=== PATIENT | male | born 1945 | race Hispanic/Latino ===

== ENCOUNTER 2016-09-17 00:21 | Inpatient (IN) | payer MEDICARE, MEDICAID ==
--- NOTE | 2016-09-17 00:52 | ED PDOC ---
Arrival/HPI - General Chief Complaint: Chest Pain Time Seen by Provider: 09/17/16 00:29 Historian: Patient - Critical Care Critical Care Minutes: 60 minutes - History of Present Illness Narrative History of Present Illness (Text): 09/17/16 00:49 Nicola Knutson is a 71 year old male, whose past medical history includes diabetes, hypertension, hyperlipidemia, small SAH, CAD s/p 7 stents and hx of falls, was brought to emergency department by daughter for evaluation of confusion, chest pain and generalized weakness. According to daughter, patient had an unwitnessed fall when he sustained abrasion to the right arm. Patient denies any head trauma or loss of consciousness. Also states that patient has been confused and unable to recall events throughout the day. Patient also complains of generalized weakness associated with several episodes of vomiting. Denies any fever, chills, shortness of breath, headache, dizziness, diarrhea, back pain, urinary symptoms, or any other complaints at this time. Time/Duration: 4-6 hours Symptom Onset: Gradual Symptom Course: Unchanged Severity Level: Mild Activities at Onset: Light Context: Work Past Medical History - Provider Review Nursing Documentation Reviewed: Yes - Infectious Disease Hx of Infectious Diseases: None - Cardiac Hx Cardiac Disorders: Yes Hx Congestive Heart Failure: Yes Hx Hypertension: Yes - Pulmonary Hx Respiratory Disorders: No - Neurological Hx Neurological Disorder: Yes Hx Seizures: Yes (since 7 yrs old) - HEENT Hx HEENT Disorder: Yes Hx Cataracts: Yes - Renal Hx Renal Disorder: No - Endocrine/Metabolic Hx Endocrine Disorders: Yes Hx Diabetes Mellitus Type 2: Yes - Hematological/Oncological Hx Blood Disorders: No - Integumentary Hx Dermatological Disorder: Yes Other/Comment: multiple small lacerations and bruises to b/l arms and hands, bruise and swelling to right advent/forehead eccymosis - Musculoskeletal/Rheumatological Hx Musculoskeletal Disorders: Yes Hx Falls: Yes - Gastrointestinal Hx Gastrointestinal Disorders: No - Genitourinary/Gynecological Hx Genitourinary Disorders: No - Psychiatric Hx Psychophysiologic Disorder: Yes Hx Depression: Yes Hx Substance Use: No - Surgical History Hx Coronary Stent: Yes - Anesthesia Hx Anesthesia: Yes Family/Social History - Physician Review Nursing Documentation Reviewed: Yes Family/Social History: No Known Family HX Smoking Status: Never Smoked Hx Alcohol Use: No Hx Substance Use: No Allergies/Home Meds Allergies/Adverse Reactions: Allergies No Known Allergies Allergy (Verified 07/02/16 13:55) Home Medications: Home Meds Medication Instructions Recorded Confirmed Carvedilol [Coreg] 3.125 mg PO BID 06/20/16 09/17/16 Citalopram Hydrobromide [Celexa] 20 mg PO DAILY 06/20/16 09/17/16 Clopidogrel [Plavix] 75 mg PO DAILY 06/20/16 09/17/16 Gabapentin [Neurontin] 600 mg PO TID 06/20/16 09/17/16 Glimepiride [Amaryl] 1 mg PO DAILY 06/20/16 09/17/16 Nitroglycerin [Nitrostat] 0.4 mg SL PRN PRN 06/20/16 09/17/16 Pentoxifylline [Pentoxil] 400 mg PO TID 06/20/16 09/17/16 Phenobarbital [PHENobarbital Tab] 64.8 mg PO BID 06/20/16 09/17/16 metFORMIN [glucOPHAGE] 500 mg PO BID 06/20/16 09/17/16 traZODone [trazODONE HYDROCHLORIDE] 50 mg PO HS 06/20/16 09/17/16 Apixaban [Eliquis] 5 mg PO BID 09/17/16 09/17/16 Aspirin [Aspirin EC] 325 mg PO DAILY 09/17/16 09/17/16 Review of Systems - Physician Review All systems were reviewed & negative as marked: Yes - Review of Systems Constitutional: absent: Fevers Respiratory: Normal. absent: SOB, Cough, Sputum Cardiovascular: Chest Pain. absent: Palpitations Gastrointestinal: Nausea, Vomiting. absent: Abdominal Pain, Diarrhea Neurological: Other (confusion ). absent: Headache, Dizziness Psychiatric: Normal Physical Exam Vital Signs Reviewed: Yes Vital Signs Temp Pulse Resp BP Pulse Ox 09/17/16 10:52 81 16 113/79 100 09/17/16 09:41 84 14 112/74 98 09/17/16 09:13 84 16 101/74 98 09/17/16 08:00 94 H 16 117/68 96 09/17/16 07:41 90 117/68 09/17/16 07:30 93 H 16 111/77 95 09/17/16 06:51 88 23 116/67 91 L 09/17/16 04:18 97.7 F 87 20 111/76 95 09/17/16 02:40 102 H 20 116/81 95 09/17/16 00:27 97.7 F 101 H 24 122/86 83 L Temperature: Afebrile Blood Pressure: Normal Pulse: Tachycardic Respiratory Rate: Normal Appearance: Positive for: Well-Appearing, Non-Toxic, Comfortable Pain Distress: None Mental Status: Positive for: Alert and Oriented X 3 - Systems Exam Head: Present: Atraumatic, Normocephalic Pupils: Present: PERRL Respiratory/Chest: Present: Clear to Auscultation, Good Air Exchange. No: Respiratory Distress, Accessory Muscle Use Cardiovascular: Present: Regular Rate and Rhythm, Normal S1, S2. No: Murmurs Abdomen: Present: Normal Bowel Sounds. No: Tenderness, Distention, Peritoneal Signs Back: Present: Normal Inspection Upper Extremity: Present: NORMAL PULSES, Neurovascularly Intact, Other ( abrasions to right forearm ). No: Cyanosis, Edema, Swelling, Erythema Lower Extremity: Present: Other (right bka ). No: Edema Neurological: Present: GCS=15, CN II-XII Intact, Speech Normal, Motor Func Grossly Intact, Normal Sensory Function Skin: Present: Warm, Dry, Normal Color. No: Rashes Psychiatric: Present: Alert, Oriented x 3, Normal Insight, Normal Concentration Medical Decision Making ED Course and Treatment: 09/17/16 00:52 Impression: A 71 year old male who presents to the emergency department complaining of generalized weakness, chest pain and confusion. Plan: -- CT Head -- EKG -- Labs, cardiac enzymes -- Alcohol level -- Drug Screen -- Chest X-ray -- Blood Culture -- Urine culture -- Urinalysis -- Reassess and disposition Progress Notes: EKG results reviewed by me: NSR @ 98 bpm. New Left bundle branch block compared with EKG on july 2016. Case discussed with Dr. Real, paper finisher, who recommends that case not a stemi, spoke with dr sanchez will not accept pt needs acth or transfer, spoke with jamee real at 6am , will come to see pt does not recommend transfer, spoke with dr naranjo will endorse to dr lópez Will admit patient to ICU for chest pain and hyperglycemia. case accepted by dr sarabia for dr bynum 09/17/16 05:37 CT Head results reviewed: FINDINGS: Brain: No intracranial hemorrhage. There is global parenchymal volume loss. Periventricular hypoattenuation is likely due to small vessel disease. No evidence of evolved territorial infarct or cerebral edema. No mass effect or midline shift. Ventricles: Prominent ventricles secondary to volume loss. Bones/joints: No acute osseous abnormality. Soft tissues: No soft tissue swelling. Sinuses: Visualized paranasal sinuses are clear. Mastoid air cells: Mastoid air cells are well-aerated. IMPRESSION: No acute intracranial findings. 09/17/16 06:37 09/17/16 06:49 - Lab Interpretations Microbiology Results: Microbiology Results 09/17/16 01:35 Urine,Clean Catch Urine Culture - Final No Growth (<1,000 CFU/ML) 09/17/16 01:02 Blood-Venous Blood Culture - Preliminary NO GROWTH AFTER 24 HOURS 09/17/16 00:30 Blood-Venous Blood Culture - Preliminary NO GROWTH AFTER 24 HOURS Lab Results: 09/17/16 01:02 09/17/16 01:02 Lab Results 09/17/16 03:03: Urine Opiates Screen Negative, Urine Methadone Screen Negative, Ur Barbiturates Screen Positive H, Ur Phencyclidine Scrn Negative, Ur Amphetamines Screen Negative, U Benzodiazepines Scrn Negative, U Oth Cocaine Metabols Negative, U Cannabinoids Screen Negative 09/17/16 02:15: POC Glucose (mg/dL) > 500 H* 09/17/16 01:35: Urine Color Yellow, Urine Appearance Clear, Urine pH 6.0, Ur Specific [place] 1.010, Urine Protein Trace H, Urine Glucose (UA) >=1000, Urine Ketones 15 H, Urine Blood Trace-lysed H, Urine Nitrate Negative, Urine Bilirubin Negative, Urine Urobilinogen 0.2, Ur Leukocyte Esterase Negative, Urine RBC 0 - 2, Urine WBC 0 - 2, Ur Epithelial Cells 0 - 2 09/17/16 01:06: Ammonia < 9 L 09/17/16 01:02: Alcohol, Quantitative < 10 09/17/16 01:02: Sodium 132, Potassium 5.5 H, Chloride 89 L, Carbon Dioxide 25, Anion Gap 24 H, BUN 37 H, Creatinine 1.2, Est GFR ( Amer) > 60, Est GFR ( Non-Af Amer) 60, Random Glucose 813 H* D, Calcium 9.4, Phosphorus 5.6 H, Magnesium 2.0, Total Bilirubin 0.9, AST 43, ALT 42, Alkaline Phosphatase 120, Lactate Dehydrogenase 593, Total Creatine Kinase 175, Troponin I 0.75 H* D, Total Protein 7.7, Albumin 4.3, Globulin 3.4, Albumin/Globulin Ratio 1.3 09/17/16 01:02: PT 10.8, INR 1.00, APTT 22.3 L 09/17/16 01:02: WBC 10.8 D, RBC 4.52, Hgb 14.5, Hct 40.5 L, MCV 89.6, MCH 32.1 , MCHC 35.8, RDW 12.9, Plt Count 185, MPV 10.7, Gran % 87.4 H, Lymph % (Auto) 9.4 L, [place] % (Auto) 3.0, Eos % (Auto) 0.0 L, Baso % (Auto) 0.2, Gran # 9.43 H, Lymph # 1.0 L, [place] # 0.3, Eos # 0.0, Baso # 0.02 I have reviewed the lab results: Yes - RAD Interpretation Radiology Orders: 09/17/16 00:42 HEAD W/O CONTRAST [CT] Stat 09/17/16 00:43 CHEST PORTABLE [RAD] Stat 09/17/16 02:02 ELBOW RIGHT 3 VIEWS ROUTINE [RAD] Stat - EKG Interpretation Interpreted by ED Physician: Yes Type: 12 lead EKG - Medication Orders Current Medication Orders: Aspirin (Ecotrin) 81 mg PO DAILY [facility] Atorvastatin Calcium (Lipitor) 80 mg PO DIN [facility] Last Admin: 09/18/16 17:28 Dose: 80 mg Citalopram Hydrobromide (Celexa) 20 mg PO DAILY [facility] Last Admin: 09/18/16 10:34 Dose: 20 mg Clopidogrel Bisulfate (Plavix) 75 mg PO DAILY [facility] Last Admin: 09/18/16 10:14 Dose: Gabapentin (Neurontin) 600 mg PO TID [facility] PRN Reason: Protocol Last Admin: 09/18/16 17:29 Dose: 600 mg Re-Assess: Reassess Psych Meds Document 09/18/16 18:29 VITA (Rec: 09/18/16 21:36 [place] [facility] [id number] Reassess Psych Med Effective Glimepiride (Amaryl) 2 mg PO ACBD [facility] Last Admin: 09/18/16 17:27 Dose: 2 mg Ceftriaxone Sodium (Rocephin 1 Gram Ivpb) 1 gm in 100 mls @ 100 mls/hr IVPB DAILY [facility] PRN Reason: Protocol Last Admin: 09/18/16 10:36 Dose: 100 mls/hr Azithromycin (Zithromax 500mg In Ns) 500 mg in 250 mls @ 167 mls/hr IVPB DAILY [facility] PRN Reason: Protocol Last Admin: 09/18/16 10:36 Dose: 167 mls/hr Insulin Detemir (Levemir) 12 unit SC HS [facility] Insulin Human Regular (Humulin R Low) 0 units SC [facility] PRN Reason: Protocol Last Admin: 09/18/16 17:28 Dose: 3 units Metformin HCl (Glucophage) 500 mg PO BID [facility] Last Admin: 09/17/16 10:42 Dose: 500 mg Metoprolol Tartrate (Lopressor) 25 mg PO BID [facility] Last Admin: 09/18/16 17:28 Dose: 25 mg Nitroglycerin (Nitrostat Sl Tab) 0.4 mg SL Q5M PRN PRN Reason: chest pain Last Admin: 09/18/16 20:46 Dose: 0.4 mg Pentoxifylline (Pentoxil) 400 mg PO TID [facility] Last Admin: 09/18/16 17:29 Dose: 400 mg Phenobarbital (Phenobarbital Tab) 64.8 mg PO BID [facility] Last Admin: 09/18/16 17:29 Dose: 64.8 mg Re-Assess: Reassess Psych Meds Document 09/18/16 18:29 VITA (Rec: 09/18/16 21:37 [place] [facility] [id number] Reassess Psych Med Effective Trazodone HCl (Desyrel) 50 mg PO [facility] Last Admin: 09/17/16 21:52 Dose: 50 mg Discontinued Medications Al Hydrox/Mg Hydrox/Simethicone (Maalox Plus 30 Ml) 30 ml PO ONCE ONE Stop: 09/18/16 21:36 Apixaban (Eliquis) 5 mg PO BID [facility] PRN Reason: Protocol Aspirin (Ecotrin) 325 mg PO STAT [facility] Stop: 09/17/16 04:22 Last Admin: 09/17/16 04:37 Dose: 325 mg Aspirin (Ecotrin) 325 mg PO DAILY [facility] Last Admin: 09/17/16 10:34 Dose: Aspirin (Aspirin Chewable) 81 mg PO DAILY [facility] Aspirin (Aspirin Chewable) 81 mg PO DAILY [facility] Aspirin (Aspirin Chewable) 81 mg PO DAILY [facility] Last Admin: 09/18/16 07:35 Dose: Aspirin (Aspirin Chewable) Confirm Administered Dose 81 mg .ROUTE .STK-MED ONE Stop: 09/18/16 07:40 Last Admin: 09/18/16 09:00 Dose: 81 mg Bivalirudin (Angiomax) Confirm Administered Dose 250 mg IV .STK-MED ONE Stop: 09/18/16 08:39 Last Admin: 09/18/16 09:19 Dose: 250 mg Comments: AngioMax IV Bolus 9 ml was given @ 0919, followed by an IV Drip @ 20.6 ml/hr - discontinued @ 0958 Carvedilol (Coreg) 3.125 mg PO BID [facility] Clopidogrel Bisulfate (Plavix) 300 mg PO STAT STA Stop: 09/17/16 04:22 Last Admin: 09/17/16 04:37 Dose: 300 mg Dextrose (Dextrose 50% Inj) Confirm Administered Dose 50 ml .ROUTE .STK-MED ONE Stop: 09/18/16 07:13 Last Admin: 09/18/16 07:15 Dose: 50 ml Enoxaparin Sodium (Lovenox) 60 mg SC STAT [facility] PRN Reason: Protocol Stop: 09/17/16 02:07 Last Admin: 09/17/16 02:31 Dose: 60 mg Enoxaparin Sodium (Lovenox) 60 mg SC ONCE ONE PRN Reason: Protocol Stop: 09/17/16 13:48 Last Admin: 09/17/16 14:23 Dose: 60 mg Eptifibatide (Integrilin Bolus) Confirm Administered Dose 40 mg IVP .STK-MED ONE Stop: 09/18/16 09:24 Last Admin: 09/18/16 09:24 Dose: 10 mg Comments: Integrilin IV Bolus 5 ml was given @ 0924 and 0934 Fentanyl (Fentanyl) Confirm Administered Dose 100 mcg .ROUTE .STK-MED ONE Stop: 09/18/16 08:39 Last Admin: 09/18/16 09:04 Dose: 50 mcg Comments: Dr. Sharifa Real adm. Fentanyl 50 mcg IV @ 0904 Glimepiride (Amaryl) 1 mg PO DAILY [facility] Last Admin: 09/18/16 10:09 Dose: Sodium Chloride (Sodium Chloride 0.9%) 1,000 mls @ 200 mls/hr IV .Q5H [facility] Last Admin: 09/17/16 02:15 Dose: 200 mls/hr Nitroglycerin/Dextrose (Nitroglycerin 50 Mg/250 Ml D5w) 50 mg in 250 mls @ 1.5 mls/hr IV .Q24H PRN; Protocol; 5 MCG/MIN PRN Reason: Systolic Blood Pressure Last Admin: 09/17/16 07:41 Dose: 1.5 mls/hr Insulin Human Regular 100 (units/ Sodium Chloride) 100 mls @ 6 mls/hr IV .[id number] PRN; Protocol; 6 UNITS/HR PRN Reason: TITRATE PER MD ORDER Last Titration: 09/17/16 15:01 Dose: 0 units/hr, 0 mls/hr Sodium Chloride (Sodium Chloride 0.9%) 1,000 mls @ 100 mls/hr IV .Q10H [facility] Last Admin: 09/17/16 07:42 Dose: 100 mls/hr Potassium Chloride (Potassium Chloride 10 Meq/100 Ml) 10 meq in 100 mls @ 100 mls/hr IVPB Q2H [facility] Stop: 09/18/16 11:44 Last Admin: 09/18/16 12:39 Dose: 100 mls/hr Nitroglycerin/Dextrose (Nitroglycerin 50 Mg/250 Ml D5w) Confirm Administered Dose 50 mg in 250 mls @ ud IV .STK-MED ONE Stop: 09/18/16 08:40 Last Admin: 09/18/16 10:58 Dose: Heparin Sodium (Porcine) (Heparin 1000 Units/500 Ml Ns) Confirm Administered Dose 1,500 mls @ ud IV .STK-MED ONE Stop: 09/18/16 08:40 Heparin Sodium (Porcine) (Heparin 1000 Units/500 Ml Ns) Confirm Administered Dose 500 mls @ ud IV .STK-MED ONE Stop: 09/18/16 09:54 Potassium Chloride (Potassium Chloride 10 Meq/100 Ml) 10 meq in 100 mls @ 100 mls/hr IVPB Q2H [facility] Stop: 09/18/16 13:29 Sodium Chloride (Sodium Chloride 0.9%) 1,000 mls @ 50 mls/hr IV .Q20H [facility] Stop: 09/18/16 16:00 Last Admin: 09/18/16 11:23 Dose: 50 mls/hr Insulin Detemir (Levemir) 22 unit SC STAT [facility] Stop: 09/17/16 15:38 Last Admin: 09/17/16 17:02 Dose: 1 unit Insulin Detemir (Levemir) 10 unit SC BID [facility] Insulin Human Regular (Humulin R) 10 units IVP STAT [facility] Stop: 09/17/16 01:58 Last Admin: 09/17/16 02:15 Dose: 10 units Insulin Human Regular (Humulin R) 8 units SC STAT [facility] Stop: 09/17/16 05:20 Last Admin: 09/17/16 06:08 Dose: 8 units Insulin Human Regular (Humulin R Med) 0 units SC ACHS [facility] PRN Reason: Protocol Last Admin: 09/18/16 11:33 Dose: Iodixanol (Visipaque 320 Mg/Ml 100 Ml) Confirm Administered Dose 100 ml IV .STK- MED ONE Stop: 09/18/16 08:39 Iodixanol (Visipaque 320 Mg/Ml 200 Ml) Confirm Administered Dose 200 ml IV .STK- MED ONE Stop: 09/18/16 08:39 Iohexol (Omnipaque 350mg/Ml 50 Ml) Confirm Administered Dose 50 ml .ROUTE .STK- MED ONE Stop: 09/18/16 08:39 Lidocaine HCl (Lidocaine 2% 20ml Vial) Confirm Administered Dose 20 ml .ROUTE .STK-MED ONE Stop: 09/18/16 08:38 Midazolam HCl (Versed Inj) Confirm Administered Dose 2 mg .ROUTE .STK-MED ONE Stop: 09/18/16 08:39 Last Admin: 09/18/16 09:04 Dose: 2 mg Comments: Dr. Sharifa Real adm. Versed 2 mg IV @ 0904 Midazolam HCl (Versed Inj) Confirm Administered Dose 2 mg .ROUTE .STK-MED ONE Stop: 09/18/16 09:40 Last Admin: 09/18/16 09:40 Dose: 1 mg Pneumococcal Polyvalent Vaccine (Pneumovax 23 Vaccine) 0.5 ml IM .ONCE ONE Stop: 09/17/16 14:59 Potassium Chloride (K-Dur 20 Meq Er Tab) 40 meq PO ONCE ONE Stop: 09/18/16 10:10 Last Admin: 09/18/16 10:34 Dose: 40 meq - Scribe Statement Jaquelin Trujillo Provider Attestation: All medical record entries made by the Jolieibe were at my direction and personally dictated by me. I have reviewed the chart and agree that the record accurately reflects my personal performance of the history, physical exam, medical decision making, and the department course for this patient. I have also personally directed, reviewed, and agree with the discharge instructions and disposition. Disposition/Present on Arrival - Present on Arrival Any Indicators Present on Arrival: No History of DVT/PE: No History of Uncontrolled Diabetes: Yes Urinary Catheter: No History of Decub. Ulcer: No History Surgical Site Infection Following: None - Disposition Have Diagnosis and Disposition been Completed?: Yes Diagnosis: Acute coronary syndrome, Hyperglycemia, Non-ST elevation IA (NSTEMI) Disposition: HOSPITALIZED Disposition Time: 04:30 Patient Problems: Current Active Problems Problem Status Onset Acute coronary syndrome Acute Hyperglycemia Acute Condition: CRITICAL
[2016-09-17 01:14] LABS: ADD MANUAL DIFF? NO
[2016-09-17 01:29] LABS: ALB/GLOB RATIO 1.3 (1.1-1.8); ALKALINE PHOSPHATASE 120 U/L (38-133); ALT/SGPT 42 U/L (7-56); AST/SGOT 43 U/L (15-59); BILIRUBIN,TOTAL 0.9 mg/dL (0.2-1.3); BLOOD UREA NITROGEN 37 mg/dL (7-21); CALCIUM 9.4 mg/dL (8.4-10.5); CARBON DIOXIDE 25 mmol/L (21-33); CHLORIDE 89 mmol/L (98-107); GFR AFRICAN-AMERICAN > 60; PHOSPHOROUS 5.6 mg/dL (2.5-4.5); POTASSIUM 5.5 mmol/L (3.6-5.0); SODIUM 132 mmol/L (132-148); TOTAL PROTEIN 7.7 g/dL (5.8-8.3)
[2016-09-17 01:30] LABS: PARTIAL THROMBOPLASTIN TIME 22.3 Seconds (23.7-30.8)
[2016-09-17 01:35] LABS: BASO # 0.02 K/mm3 (0.0-2.0); BASO % 0.2 % (0.0-3.0); GRAN # 9.43 (1.4-6.5); GRAN % 87.4 % (50.0-68.0); HEMATOCRIT 40.5 % (42.0-52.0); LYMPH % 9.4 % (22.0-35.0); MEAN CELL VOLUME 89.6 fL (80.0-105.0); MEAN CORPUSCULAR HEMOGLOBIN 32.1 pg (25.0-35.0); MEAN CORPUSCULAR HGB CONC 35.8 g/dl (31.0-37.0); MEAN PLATELET VOLUME 10.7 fl (7.0-11.0); MONO # 0.3 (0.1-0.6); PLATELET COUNT 185 10^3/uL (120.0-450.0); RED CELL DISTRIBUTION WIDTH 12.9 % (11.5-14.5); WHITE BLOOD COUNT 10.8 10^3/ul (4.5-11.0)
[2016-09-17 01:48] LABS: URINE BILIRUBIN NEGATIVE (NEGATIVE); URINE BLOOD TRACE-LYSED (NEGATIVE); URINE GLUCOSE (UA) >=1000 mg/dL (NEGATIVE); URINE KETONE 15 mg/dL (NEGATIVE); URINE LEUKOCYTE ESTERASE NEGATIVE Leu/uL (NEGATIVE); URINE PROTEIN TRACE mg/dL (<30 mg/dL); URINE UROBILINOGEN 0.2 E.U./dL (<1 E.U./dL)
[2016-09-17 01:50] LABS: GLUCOSE,RANDOM 813 mg/dL (70-110)
[2016-09-17 01:51] LABS: TROPONIN I 0.75 ng/mL
[2016-09-17 01:56] LABS: URINE APPEARANCE CLEAR (CLEAR); URINE COLOR YELLOW (YELLOW); URINE EPITHELIAL CELLS 0 - 2 /hpf (0-5); URINE RBC 0 - 2 /hpf (0-2); URINE WBC 0 - 2 /hpf (0-6)
[2016-09-17] MEDS ORDERED: Insulin Regular 1 UNITS/0.01 ML ML IVP STA (01:57)
[2016-09-17] MEDS ORDERED: Sodium Chloride 0.9% 1,000 ML IV SCH ×2 (02:00→07:30)
[2016-09-17] MEDS ORDERED: Nitroglycerin 50mg in D5W 50 MG/250 ML BOTTLE IV PRN (02:04)
[2016-09-17] MEDS ORDERED: Enoxaparin 60 mg Syringe SC STA (02:06)
[2016-09-17] MEDS ORDERED: Aspirin 325 mg EC Tablets PO STA (04:21)
[2016-09-17] MEDS ORDERED: Insulin Regular 1 UNITS/0.01 ML ML SC STA (05:19)
--- NOTE | 2016-09-17 07:54 | CT ---
PROCEDURE: CT HEAD WITHOUT CONTRAST. HISTORY: ams COMPARISON: 07/11/2016 TECHNIQUE: Axial computed tomography images were obtained through the head/brain without intravenous contrast. Radiation dose: Total exam DLP = 788.41 mGy-cm. This CT exam was performed using one or more of the following dose reduction techniques: Automated exposure control, adjustment of the mA and/or kV according to patient size, and/or use of iterative reconstruction technique. FINDINGS: HEMORRHAGE: No intracranial hemorrhage. BRAIN: No mass effect or edema. Mild diffuse age-appropriate cerebral atrophy. No significant chronic white matter ischemic change. No evidence of acute infarct. VENTRICLES: Mild ventriculomegaly consistent with surrounding atrophy. No evidence of hydrocephalus. CALVARIUM: Unremarkable. PARANASAL SINUSES: Unremarkable as visualized. No significant inflammatory changes. MASTOID AIR CELLS: Unremarkable as visualized. No inflammatory changes. OTHER FINDINGS: None. IMPRESSION: No intracranial mass, hemorrhage or evidence of acute infarct. Preliminary interpretation of this examination was reported by [facility] [place] at 5:10 a.m. on 09/17/2016. There is concurrence of this report with the preliminary interpretation.
[2016-09-17] MEDS: Insulin Regular 100 UNITS in Sodium Chloride 0.9% 99 ML IV PRN ×2 (08:16→09:38)
[2016-09-17] MEDS: Insulin Reg-MEDIUM-Coverage SC SCH ×3 (08:22→21:53)
--- NOTE | 2016-09-17 09:11 | RAD ---
PROCEDURE: Radiographs of the right elbow. HISTORY: fall COMPARISON: No prior. FINDINGS: BONES: Examination limited. No true lateral view submitted. No evidence of fracture. JOINTS: Normal. No osteoarthritis. SOFT TISSUES: Normal. JOINT EFFUSION: None. OTHER FINDINGS: None. IMPRESSION: Limited examination. No fracture.
--- NOTE | 2016-09-17 09:15 | RAD ---
HISTORY: ams COMPARISON: 07/11/2016 FINDINGS: LUNGS: Right basilar opacity, nonspecific. Possible pneumonia. Diffuse interstitial prominence. PLEURA: No significant pleural effusion identified, no pneumothorax apparent. CARDIOVASCULAR: Mild congestive change. OSSEOUS STRUCTURES: No significant abnormalities. VISUALIZED UPPER ABDOMEN: Normal. OTHER FINDINGS: None. IMPRESSION: Right basilar opacity. Diffuse interstitial prominence. Mild congestive change. Nonspecific findings. Consider pulmonary edema or pneumonia. Interstitial infiltrate is nonspecific. However this represents interval change from prior examination.
[2016-09-17] MEDS ORDERED: Aspirin 325 mg EC Tablets PO SCH (10:00)
--- NOTE | 2016-09-17 10:34 | HP ---
HISTORY OF PRESENT ILLNESS: I was called down to the Emergency Room at [facility] He is a 71-year-old man brought to the Emergency Room by his daughter for chest pain and weakness. He also had an unwitnessed fall. He had abrasions of the right arm. Denies any head trauma. He has been confused and unable to recall certain things. Also weak. PAST MEDICAL HISTORY: Diabetes, hypertension, high cholesterol, small subdural hematoma, coronary artery disease with 7 stents, history of falls, seizures, congestive heart failure, cataracts, diabetes, multiple lacerations, bruises on the left arm and hands. Also bruise to the right temporal forehead area from falling. He has been depressed. He has stents. FAMILY HISTORY: Hypertension in the family. SOCIAL HISTORY: Never smoked, no alcohol, no drugs. ALLERGIES: No known drug allergies. MEDICATIONS: He takes Coreg, Celexa, Plavix, Neurontin, Amaryl, Nitrostat, Pentoxil, phenobarbital, Glucophage, trazodone, Eliquis and aspirin. REVIEW OF SYSTEMS: He did have a fall, does not remember much. No acute vision changes or hearing changes. He is forgetful. No shortness of breath or cough or sputum. He did have chest pain. Not sure if that was before the fall or after the fall. Some nauseousness and vomiting. No abdominal pain or diarrhea. No headache or dizziness. No extremity pains. PHYSICAL EXAMINATION: VITAL SIGNS: He has a 97.7 temp, 102 pulse, 24 respiratory rate, 122/86 blood pressure, and 83% up to 95% O2 sat. HEENT: Head is mildly traumatic with some bruises. He is alert and oriented x 2. He is well-appearing, comfortable, nontoxic. Head is normocephalic, mild traumatic. Extraocular muscles are intact. HEART: Regular rate. Normal S1, S2. LUNGS: Decreased breath sounds but clear to auscultation. ABDOMEN: Soft, nontender, positive bowel sounds. EXTREMITIES: He has a right BKA, left leg has no edema. NEUROLOGIC: GCS is 15. Cranial nerves II-XII grossly intact. Speech is normal. SKIN: Warm and dry with multiple ecchymoses area. Thyroid midline. No palpable appreciative lymphadenopathy. He is weak, fall, chest pain. He has consult with cardiology. I believe we tried to take him to the [facility], but could not do the catheterization. He is currently on nitroglycerin drip. He is on Amaryl, Celexa, Desyrel, Ecotrin, Glucophage, insulin, Lopressor, Neurontin, Pentoxil, phenobarbital, Plavix, IV fluids. Blood pressure is 112/74 now, 98% O2 sat on nasal canula. He has a white count of 10.8, hemoglobin 14.5, hematocrit 40.5, platelets 185. INR is 1. Chemistries, he has a 132 sodium, potassium is 5.5, BUN 37, creatinine 1.2. Sugars have been as high as 813, it is now down to 347, calcium is 9.4, phosphorus 5.6, magnesium 2, total bili is 0.9, AST is 43, ALT is 42, alkaline phosphatase 120. Ammonia level is less than 9, lactate dehydrogenase is 593. His troponins elevated at 0.75 and 55.3 . He had a total protein of 7.7. Urine is trace. He is positive for barbiturates. He had a right elbow x-ray because of all the bruises on it and scrapes. There was no fracture. He also had a CAT scan of the head because of the bruises on his forehead and that showed no intracranial mass, hemorrhage, or evidence of acute infarct. He also had a chest x-ray which showed right basal opacity, diffuse interstitial prominence, mild occlusive change, consider pulmonary edema or pneumonia. Interstitial infiltrate is nonspecific. I called in cardiology, neurology, endocrinology and pulmonology. I put the patient on Rocephin and azithromycin so pulmonary can clear the patient for pneumonia. Continue with aggressive treatment and care and as per cardiology. Keith Montes DO cc: [id number] TT: 09/17/2016 10:34:31 camacho MONROY
[2016-09-17] MEDS: cefTRIAXone 1 gm 1 GM/100 ML BAG IVPB SCH (10:53)
--- NOTE | 2016-09-17 12:04 | CON ---
DATE: 09/17/2016 REASON FOR CONSULTATION: Rule out pneumonia. REFERRING PHYSICIAN: Dr. Keith Montes The patient is a 71-year-old male with past medical history significant for extensive coronary artery disease, status post multiple cardiac stents(7), diabetes mellitus, hypertension, subarachnoid hemorrhage in the past, frequent falls at home, who presents to [facility] -- brought in by the daughter -- with main complaint of chest pain. The patient describes the chest pain "across his chest." He does not have chest pain at the time of my examination. In addition to the above, the daughter also stated to the patient being more confused and weak over the past day. There is no history of shortness of breath at rest, dyspnea on exertion, cough, or sputum production. There is no history of coughing up of blood. There is no history of chest discomfort -- made worse with deep respirations. There is no history of temperatures, chills or infectious exposure. There is no history of night sweats, weight loss or appetite change prior to the above events. No history of calf pains. No history of syncope or diaphoresis. The patient has had frequent falls at home. No history of travel. REVIEW OF SYSTEMS: No history of nausea, vomiting or diarrhea. No acute urinary symptoms. No new musculoskeletal complaints. Rest is negative. ALLERGIES: No known allergies. SOCIAL HISTORY: Negative for tobacco, negative for alcohol. FAMILY HISTORY: No inheritable diseases. HOME MEDICATIONS: Include nitroglycerin, aspirin, phenobarbital, Amaryl, Celexa , trazodone, Coreg, Glucophage, Neurontin, Plavix, Eliquis. PHYSICAL EXAMINATION: GENERAL: The patient appears comfortable at rest. He is not short of breath. VITAL SIGNS: Temperature is 97.7, pulse 84, respirations 14, blood pressure 112 /74. Oxygen saturation on nasal cannula is 98%. HEENT: Normocephalic, atraumatic. No JVD. CARDIOVASCULAR: Positive S1, S2. No S3. LUNGS: Crackles at both bases. No rhonchi. No wheezing. EXTREMITIES: The patient is status post right BKA. The left lower extremity shows no clubbing, cyanosis, or edema. The left calf is nontender to palpation. GASTROINTESTINAL: Abdomen is soft, nontender, nondistended. Bowel sounds are positive. SKIN: No acute rash. NEUROLOGIC: Limited at the present time. PERTINENT LABORATORY DATA: Chest x-ray was done and reviewed. I also compared the most recent chest x-ray to previous films. On the most recent film, there is a mild increase in interstitial changes. There is also a possible small patchy infiltrate noted at the right base. CBC: White count 10.8, hemoglobin 14.5, hematocrit 40.5, platelets of 185. Complete metabolic profile: Potassium 5.5, chloride 89, BUN 37, glucose 813, phosphorus 5.6. Troponin 0.75. Rest of the metabolic profile is within normal limits. Peak troponin 55.3. IMPRESSION: 1. Acute myocardial infarction. 2. History of extensive coronary artery disease, status post 7 stents. 3. Rule out pneumonia -- right lower lobe. 4. Uncontrolled diabetes mellitus. 5. Electrolyte abnormalities. PLAN: The patient presents to [facility] with main complaint of chest pain for 1 day. As above, the patient was brought in by his daughter. As per the ER notations, the daughter also stated that her father (the patient) had confusion and generalized weakness also over the past day. I did review the chest x-ray as above. The x-ray is a poor portable film, but appears to show a possible small right basal infiltrate. Ward cultures have been ordered and will be analyzed when feasible. The patient has been started on appropriate antibiotic therapy. I will also order a stat procalcitonin level - - to try and help distinguish whether we are dealing with a true pneumonia or not. I have also reviewed the laboratory data. Peak troponin this morning -- 55.3. Dr. Corey (cardiology) has been called on consult. This patient has an extensive cardiac history. Also upon review of the laboratory data, uncontrolled diabetes mellitus and multiple electrolyte abnormalities are noted. Dr. Dash (endocrine) has been also called on the case. Lastly, Dr. Ayers (neurology) has also been called on the case. Repeat a.m. labs are ordered. I will also order a repeat chest x-ray -- for tomorrow -- for comparison. The patient's status is very guarded at this point in time. He is scheduled to be admitted to the ICU. I will discuss the above with the entire ICU team in the next few moments. I will also discuss the above with Dr. Montes. Thank you very much for this pulmonary consultation. Vasquez Malik MD cc: [id number] TT: 09/17/2016 12:04:25 Confirmation # [id number] Dictation # [id number] en MTDD
[2016-09-17] MEDS: Azithromycin 500MG/NS 250ml 500 MG/250 ML BAG IVPB SCH (12:36)
[2016-09-17 13:07] LABS: ALB/GLOB RATIO 1.1 (1.1-1.8); ALKALINE PHOSPHATASE 91 U/L (38-133); ALT/SGPT 67 U/L (7-56); AST/SGOT 394 U/L (15-59); BILIRUBIN,TOTAL 0.6 mg/dL (0.2-1.3); BLOOD UREA NITROGEN 37 mg/dL (7-21); CALCIUM 9.3 mg/dL (8.4-10.5); CARBON DIOXIDE 33 mmol/L (21-33); CHLORIDE 97 mmol/L (98-107); GFR AFRICAN-AMERICAN > 60; GLUCOSE,RANDOM 195 mg/dL (70-110); SODIUM 138 mmol/L (132-148); TOTAL PROTEIN 7.2 g/dL (5.8-8.3)
[2016-09-17] MEDS ORDERED: Enoxaparin 60 mg Syringe SC ONE (13:47)
--- NOTE | 2016-09-17 13:51 | CON ---
DATE: 09/17/2016 This is a 71-year-old gentleman with history of diabetes, hypertension, hyperlipidemia, and subarachnoid hemorrhage, coronary artery disease status post 7 stents and history of falls, who presented with confusion, disorientation , chest pain and weakness. According to daughter, the patient had an unwitnessed fall when he sustained abrasion to the right arm. The patient, however, denies any head trauma, loss of consciousness. The patient's daughter states that, throughout the day, he was somewhat disoriented and unable to recall events. Several episodes of vomiting also happened. No fever, no chills , no shortness of breath. No headache, dizziness, diarrhea, neck pain, or urinary symptoms. PAST MEDICAL HISTORY: Diabetes, hypertension, hyperlipidemia, subarachnoid hemorrhage, coronary artery disease status post 7 stents and history of fall. ALLERGIES: NKDA. SOCIAL HISTORY: The patient is a lifelong nonsmoker. No alcohol or illicit drug abuse. MEDICATIONS AT HOME: Coreg, citalopram, Plavix, Neurontin, Amaryl, nitroglycerin p.r.n., pentazole, pentobarbital, metformin, trazodone, Eliquis, aspirin. FAMILY HISTORY: Noncontributory. REVIEW OF SYSTEMS: Revealed 12-organ system other than mentioned in history of present illness is negative. PHYSICAL EXAMINATION: VITAL SIGNS: Blood pressure 113/79, heart rate 81, oxygen saturation 100% on nasal cannula, respiratory rate 16. HEAD AND NECK: Atraumatic. LUNGS: Clear to auscultation bilaterally. HEART: Regular rate and rhythm. S1, S2 normal. ABDOMEN: Soft, nontender, nondistended. NEUROLOGIC: The patient moves all extremities spontaneously. MUSCULOSKELETAL: No C/C/E on both upper and left lower extremity. Status post BKA on the right lower extremity. PSYCHIATRIC: The patient is alert and oriented x 2. He is confused about date ; however, he is able to identify his location and his name. LABORATORY DATA: WBC 10.8, hemoglobin 14.5, platelet count 185. Troponin 55.3 up from 0.75. Sodium 132, potassium 5.5, chloride 89, BUN 37, creatinine 1.2, glucose 813. INR 1. PTT 22.3. Urine positive for barbiturates (patient is prescribed phenobarbital). Head CT showed no intracranial mass, hemorrhage, or evidence of acute infarct. EKG showed new bundle branch block. Chest x-ray showed some bilateral vascular congestion. ASSESSMENT AND PLAN: This is a 71-year-old gentleman who presented with new onset of left bundle branch block with chest pain in the setting of diabetic ketoacidosis. The patient was started on insulin drip, IV fluids. Dual antiplatelets initiated. Beta candace, statin started. The patient received 1 dose of therapeutic anticoagulation. It is unclear how adherent the patient is to his medication and thus, it is unclear when his last dose of Eliquis was given prior to admission to [facility]. I discussed that with Dr. Montes who is his primary medical doctor. I will hold anticoagulation at present time due to his unclear status of iatrogenic coagulopathy. I spoke with Dr. Corey who is contemplating cardiac catheterization tomorrow. CAT scan of the head did not reveal any intracranial bleed or any acute intracranial pathology. We will continue with insulin drip until the patient's anion gap closes. CMP is pending at present time. We will continue with IV fluids. Once his blood glucose drops down below 250, we will consider switching patient to D5 containing solutions. We will continue with Accu-Chek every 1 hour. We will continue with BNP every 4 hours. We will continue to follow troponin. Echocardiogram is pending. We will continue to target euvolemia, euglycemia, normothermia and oxygen saturation more than 90%. We will continue with gastrointestinal prophylaxis. Addendum: Cardiac cath in am. AG closed, insulin drip stopped. s/c levemir was given, patient is eating well. Troponin is trending up. ASA, Plavix continued. Last dose of Eliquis yesterday? ccm time 40 min Sonu Guzmán MD cc: [id number] TT: 09/17/2016 13:50:28 Confirmation # [id number] Dictation # [id number] rojelio MONROY
--- NOTE | 2016-09-17 14:43 | CON ---
DATE: 09/17/2016 HISTORY OF PRESENT ILLNESS: The patient is a 71-year-old male who complained of chest pain. He was found to have a new left bundle branch block on his EKG. This morning, I was called to see whether the patient should be a code heart. Because of his lack of chest pain while being evaluated in the Emergency Room , his glucose that was greater than 800, an emergency cardiac catheterization was put on hold. The patient was treated medically. PAST MEDICAL HISTORY: Notable for history of peripheral neuropathy. He has been treated with Eliquis for questionable reasons. He also suffers from diabetes mellitus. There is a question of a previous seizure disorder in the past. SOCIAL HISTORY: The patient denies smoking. REVIEW OF SYSTEMS: The patient is currently chest pain free. PHYSICAL EXAMINATION: VITAL SIGNS: Blood pressure is 103/63. The heart rate is in the 70s, normal sinus rhythm. NECK: Negative JVD. LUNGS: Bilateral rhonchi. HEART: Reveals S1, S2. EXTREMITIES: Without edema. EKG shows a left bundle branch block which has now returned to his baseline EKG now that the heart rate has slowed, consistent with a rate related bundle branch block. LABORATORIES: Reveal troponins that are 55. The glucose is now down from 800, down to 195. BUN and creatinine are unremarkable. Hemoglobin is 14. IMPRESSION: 1. Efm-JF-hrdvfwtsk myocardial infarction. 2. Rate related bundle branch block. 3. Unstable angina. 4. Hyperosmolar secondary to diabetes out of control. 5. Mild confusion. Given these findings, the patient will be treated medically today, until his glucose is under better control. Will hydrate the patient. The patient is started on aspirin, Plavix as well as anticoagulation. Will discontinue his Eliquis. We will plan for cardiac catheterization in the morning. Juancarlos Corey MD cc: [id number] TT: 09/17/2016 14:42:37 Confirmation # [id number] Dictation # [id number] nicolas MONROY
[2016-09-17 14:58] VITALS: BMI 20.6
[2016-09-17] MEDS ORDERED: Pneumococcal 23-Valent Vaccine IM ONE (14:58)
[2016-09-17] MEDS ORDERED: Insulin Detemir 100 units/ml Vial (Levemir) SC STA (15:37)
[2016-09-17] MEDS ORDERED: Insulin Lispro (humaLOG) MEDIUM Coverage SC SCH (16:30)
--- NOTE | 2016-09-17 18:27 | CON ---
DATE: 09/17/2016 CHIEF COMPLAINT: Altered mental status. HISTORY OF PRESENT ILLNESS: A 71-year-old man with history of type 2 diabetes mellitus, uncontrolled hypertension, hyperlipidemia, history of subarachnoid hemorrhage in 06/2016, history of seizure diso rder on phenobarbital 64.8 mg p.o. b.i.d., history of severe diabetic peripheral neuropathy who came in with a change in mental status and confusion, found to have elevated blood sugars of about 800, wa s currently in diabetic ketoacidosis. Currently, being managed in the ICU where his sugars are da r today, which is 165. He has also had elevated troponin and positive NSTEMI going on, which w ill possibly undergo cardiac catheterization. He does have a baseline of underlying cognitive impair ment from his underlying chronic medical conditions. He is following simple commands, moving all ext remities. PAST MEDICAL HISTORY: History of diabetes, diabetic peripheral neuropathy, seizures, history of suba rachnoid hemorrhage in 06/2016, history of dyslipidemia. REVIEW OF SYSTEMS: A 14-point review of systems is negative except for the HPI. FAMILY HISTORY: Noncontributory. ALLERGIES: No known drug allergies. MEDICATIONS: Reviewed by nurse's reconciliation sheet. SOCIAL HISTORY: No illicit drug use, smoking or EtOH abuse at this time. PHYSICAL EXAMINATION: VITAL SIGNS: Temperature afebrile, pulse rate 77, blood pressure 120/70, respiratory rate 16, oxygen 96% on room air. GENERAL: The patient is sitting up in bed in no acute distress. HEENT: Atraumatic, normocephalic. PERRLA. Extraocular muscles intact. NECK: Supple, no JVD, no adenopathy noted. LUNGS: Clear to auscultation. No adventitious sounds. HEART: S1, S2, normal rate and rhythm. No murmurs, rubs, or gallops. ABDOMEN: Soft, nontender, nondistended. Bowel sounds present. EXTREMITIES: No clubbing, no cyanosis. Peripheral pulses 2+ felt bilaterally. He is status post BK A on the right lower extremity. 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 Recall after 5 minutes is 0/3. Poor attention span, slow tho ught process. He does have a baseline cognitive impairment. Cranial nerves II-XII are intact. MOTOR: Moves all extremities except for his right BKA. SENSORY: Increased light touch throughout the calves bilaterally. Decreased vibration at the knees and elbows. DTRs are 1+ throughout and absent at the knees. COORDINATION: Mrqbvh-do-vixs intact. GAIT: Deferred for now. LABORATORY DATA: 138, potassium 4.4, chloride of 97, carbon dioxide 33, BUN of 37, creatinine 1. Random glucose 195. ASSESSMENT AND PLAN: This is a 71-year-old man with history of uncontrolled diabetes, diabetic perip heral neuropathy, history of seizure disorder on phenobarbital, history of cognitive impairment, hist ory of subarachnoid hemorrhage in 06/2016, who came in for a change in mental status, found to have a left bundle branch block and diabetic ketoacidosis at this time. His change in mental status is lik teddy secondary to underlying toxic metabolic encephalopathy from DKA. Would recommend: 1. Monitor his blood sugars and keep between 180 and 140. 2. to avoid nighttime interruptions, avoid any sedating medications. 3. Watch his electrolytes for . 4. Going for possible cardiac catheterization for his underlying NSTEMI, cardiology followup appreci ated. 5. Continue with aspirin, Lipitor and Plavix for stroke prevention. 6. Continue Neurontin 600 mg p.o. t.i.d. for neuropathic pain. 7. Continue with phenobarbital 64.8 mg p.o. b.i.d. for underlying seizure prophylaxis. At this time , continue with current present medical management. No further neurological workup at this time. Thank you for this consult. Please reconsult if necessary. Geoff Ayers MD cc: [id number] TT: 09/17/2016 18:26:29 Confirmation # [id number] Dictation # [id number] nicolas
--- NOTE | 2016-09-17 19:42 | CARD ---
APPROVED REPORT EXAM: Two-dimensional and M-mode echocardiogram with Doppler and color Doppler. INDICATION ACUTE MS 2D DIMENSIONS Left Atrium (2D)4.1 (1.6-4.0cm)IVSd0.8 (0.7-1.1cm) LVDd5.1 (3.9-5.9cm)PWd1.0 (0.7-1.1cm) LVDs4.5 (2.5-4.0cm)FS (%) 11.8 % LVEF (%)25.4 (>50%) M-Mode DIMENSIONS Aortic Root3.50 (2.2-3.7cm)Aortic Cusp Exc.1.60 (1.5-2.0cm) Aortic Valve AoV Peak Vlgsfcfw429.0cm/Lia Peak GR.5mmHg Mitral Valve MV E Powixdvu85.5cm/sMV A Xhislson52.9cm/sE/A ratio1.8 TDI Lateral E' Peak V6.04cm/sMedial E' Peak V5.85cm/sE/Lateral E'13.0 E/Medial E'13.4Lateral S' Peak V5.8cm/s Pulmonary Valve PV Peak Euluvdcg99.3cm/sPV Peak Grad.1mmHg Tricuspid Valve TR Peak Nigoptbf869ku/sRAP [id number] Peak Gr.54mmHg [id number] LEFT VENTRICLE The left ventricle is normal size. There is normal left ventricular wall thickness. The systolic function is severely impaired. Sever Apical hypokinesis Transmitral Doppler flow pattern is Grade II-pseudonormal filling dynamics. Cannot rule out thrombus in left Ventricle. RIGHT VENTRICLE The right ventricle is normal size. There is normal right ventricular wall thickness. The right ventricular systolic function is normal. ATRIA The left atrium size is normal. The right atrium size is normal. AORTIC VALVE The aortic valve is normal in structure. No aortic regurgitation is present. MITRAL VALVE The mitral valve is normal in structure. Mitral regurgitation is moderate. TRICUSPID VALVE The tricuspid valve is normal in structure. There is moderate pulmonary hypertension. GREAT VESSELS The aortic root is normal in size. PERICARDIAL EFFUSION There is no pericardial effusion. <Conclusion> The left ventricle is normal size. There is normal left ventricular wall thickness. The systolic function is severely impaired. Sever Apical hypokinesis Cannot rule out thrombus in left Ventricle. Mitral regurgitation is moderate. There is moderate pulmonary hypertension.
--- NOTE | 2016-09-17 22:30 | CARD ---
APPROVED REPORT EKG Measurement Heart [id number] CO [id number] <Conclusion> Normal sinus rhythm Low voltage QRS Cannot rule out Anteroseptal infarct, age undetermined Abnormal ECG
--- NOTE | 2016-09-17 22:57 | CARD ---
APPROVED REPORT EKG Measurement Heart [id number] <Conclusion> Normal sinus rhythm Left bundle branch block Abnormal ECG
[2016-09-18 07:08] LABS: HEMATOCRIT 37.9 % (42.0-52.0); MEAN CELL VOLUME 89.6 fL (80.0-105.0); MEAN CORPUSCULAR HEMOGLOBIN 31.7 pg (25.0-35.0); MEAN CORPUSCULAR HGB CONC 35.4 g/dl (31.0-37.0); MEAN PLATELET VOLUME 10.6 fl (7.0-11.0); RED CELL DISTRIBUTION WIDTH 13.2 % (11.5-14.5); WHITE BLOOD COUNT 11.4 10^3/ul (4.5-11.0)
[2016-09-18] MEDS ORDERED: Dextrose 50% SYRINGE Inj (50 ml) ONE (07:12)
[2016-09-18] MEDS: Insulin Reg-MEDIUM-Coverage SC SCH ×2 (07:12→11:33)
[2016-09-18 07:13] LABS: ALB/GLOB RATIO 1.2 (1.1-1.8); ALKALINE PHOSPHATASE 92 U/L (38-133); ALT/SGPT 68 U/L (7-56); AST/SGOT 223 U/L (15-59); BILIRUBIN,TOTAL 0.7 mg/dL (0.2-1.3); BLOOD UREA NITROGEN 31 mg/dL (7-21); CALCIUM 8.8 mg/dL (8.4-10.5); CARBON DIOXIDE 34 mmol/L (21-33); CHLORIDE 96 mmol/L (98-107); CHOLESTEROL 209 mg/dL (130-200); GFR AFRICAN-AMERICAN > 60; GLUCOSE,RANDOM 70 mg/dL (70-110); POTASSIUM 3.3 mmol/L (3.6-5.0); SODIUM 138 mmol/L (132-148); TOTAL PROTEIN 7.1 g/dL (5.8-8.3)
--- NOTE | 2016-09-18 08:03 | CP.CCUPN ---
<Cassandra Perez - Last Filed: 09/18/16 15:38> CCU Subjective - Physician Review Events Since Last Encounter (Free Text): 09/18/16 07:58 Pt s/e at bedside this AM. LUCÍAEO. Patient complains of dyspnea overnight with a non-productive cough, dysuria, chronic headaches and gait instability but denies chest pain, palpitations, nausea, vomiting, fevers, chills or any other sypmptoms CCU Objective - Vital Signs / Intake & Output Vital Signs (Last 4 hours): Vital Signs Pulse Resp BP Pulse Ox 09/18/16 07:43 78 09/18/16 07:28 70 95/45 L 09/18/16 07:20 74 16 100 09/18/16 07:10 74 17 100 09/18/16 07:00 72 31 H 95/45 L 100 09/18/16 06:50 71 14 99 09/18/16 06:40 70 20 100 09/18/16 06:30 72 19 98 09/18/16 06:20 69 21 99 09/18/16 06:10 67 23 100 09/18/16 06:00 65 21 109/58 L 98 09/18/16 05:50 65 13 98 09/18/16 05:49 69 23 99 09/18/16 05:40 72 20 99 09/18/16 05:30 66 23 97 09/18/16 05:20 68 21 96 09/18/16 05:10 66 20 97 09/18/16 05:00 68 24 119/71 99 09/18/16 04:50 66 17 100 09/18/16 04:40 69 17 100 09/18/16 04:30 68 16 99 09/18/16 04:20 70 99 09/18/16 04:10 70 8 L 99 09/18/16 04:00 69 16 121/82 97 Intake and Output (Last 8hrs): Intake & Output 09/17/16 09/18/16 09/18/16 22:59 06:59 14:59 Intake Total 1486 60 Output Total 0 300 Balance 1486 -240 Weight 58.967 kg Intake: IV 686 Right Antecubital 684 Oral 800 60 Output: Urine 0 300 Urine, Voided 0 300 Emesis 0 Other: Voiding Method Urinal Urinal # Bowel Movements 0 - Physical Exam Head: Positive for: Atraumatic, Normocephalic Pupils: Positive for: PERRL Extroacular Muscles: Positive for: EOMI Conjunctiva: Positive for: Normal Mouth: Positive for: Moist Mucous Membranes Pharnyx: Positive for: Normal. Negative for: ERYTHEMA, EXUDATE Respiratory/Chest: Positive for: Clear to Auscultation, Decreased Breath Sounds (RLL). Negative for: Respiratory Distress, Accessory Muscle Use Cardiovascular: Positive for: Regular Rate and Rhythm, Normal S1, S2. Negative for: Murmurs Abdomen: Positive for: Normal Bowel Sounds. Negative for: Tenderness, Distention, Peritoneal Signs Upper Extremity: Positive for: NORMAL PULSES, Neurovascularly Intact, Other ( abrasions to right forearm ). Negative for: Cyanosis, Edema, Normal ROM ( decreased active ROM in forearm flexion 2/2 pain), Swelling, Erythema Lower Extremity: Positive for: Other (right bka ). Negative for: Edema, CALF TENDERNESS, Cyanosis Neurological: Positive for: GCS=15, CN II-XII Intact, Speech Normal, Motor Func Grossly Intact, Normal Sensory Function Skin: Positive for: Warm, Dry, Normal Color. Negative for: Rashes Psychiatric: Positive for: Alert, Oriented x 3, Normal Insight, Normal Concentration - Medications Active Medications: Active Medications Generic Name Dose Route Start Last Admin Trade Name Freq PRN Reason Stop Dose Admin Aspirin 81 mg 09/18/16 08:00 Aspirin Chewable PO DAILY [facility] Atorvastatin Calcium 80 mg 09/17/16 17:00 09/17/16 17:05 Lipitor PO 80 mg DIN MIGUEL Administration Citalopram Hydrobromide 20 mg 09/17/16 10:00 09/17/16 10:42 Celexa PO 20 mg DAILY MIGUEL Administration Clopidogrel Bisulfate 75 mg 09/17/16 10:00 09/18/16 07:28 Plavix PO 75 mg DAILY MIGUEL Administration Gabapentin 600 mg 09/17/16 10:00 09/17/16 17:06 Neurontin PO 600 mg TID MIGUEL Administration Protocol Glimepiride 1 mg 09/17/16 10:00 09/17/16 10:40 Amaryl PO 1 mg DAILY MIGUEL Administration Insulin Human Regular 100 100 mls @ 6 mls/hr 09/17/16 03:22 09/17/16 15:01 units/ Sodium Chloride IV 0 units/hr .[id number] PRN 0 mls/hr TITRATE PER MD ORDER Titration Protocol 6 UNITS/HR Ceftriaxone Sodium 1 gm in 100 mls @ 100 mls/hr 09/17/16 10:00 09/17/16 10:53 Rocephin 1 Gram Ivpb IVPB 100 mls/hr DAILY MIGUEL Administration Protocol Azithromycin 500 mg in 250 mls @ 167 mls/hr 09/17/16 10:00 09/17/16 12:36 Zithromax 500mg In Ns IVPB 167 mls/hr DAILY MIGUEL Administration Protocol Insulin Human Regular 0 units 09/17/16 07:30 09/18/16 07:12 Humulin R Med SC Not Given ACHS MIGUEL Protocol Metformin HCl 500 mg 09/17/16 10:00 09/17/16 10:42 Glucophage PO 500 mg BID MIGUEL Administration Metoprolol Tartrate 25 mg 09/17/16 10:00 09/18/16 07:28 Lopressor PO 25 mg BID MIGUEL Administration Nitroglycerin 0.4 mg 09/17/16 07:04 Nitrostat Sl Tab SL Q5M PRN chest pain Pentoxifylline 400 mg 09/17/16 10:00 09/17/16 17:20 Pentoxil PO 400 mg TID MIGUEL Administration Phenobarbital 64.8 mg 09/17/16 10:00 09/17/16 17:58 Phenobarbital Tab PO 64.8 mg BID MIGUEL Administration Trazodone HCl 50 mg 09/17/16 22:00 09/17/16 21:52 Desyrel PO 50 mg HS MIGUEL Administration - Patient Studies Lab Studies: Lab Studies 09/18/16 09/18/16 09/18/16 Range/Units 06:10 06:10 06:10 WBC 11.4 H (4.5-11.0) 10^3/ul RBC 4.23 (3.5-6.1) 10^6/uL Hgb 13.4 L (14.0-18.0) gm/dL Hct 37.9 L (42.0-52.0) % MCV 89.6 (80.0-105.0) fL MCH 31.7 (25.0-35.0) pg MCHC 35.4 (31.0-37.0) g/dl RDW 13.2 (11.5-14.5) % Plt Count 182 (120.0-450.0) 10^3/uL MPV 10.6 (7.0-11.0) fl Sodium 138 (132-148) mmol/L Potassium 3.3 L (3.6-5.0) mmol/L Chloride 96 L (98-107) mmol/L Carbon Dioxide 34 H (21-33) mmol/L Anion Gap 11 (10-20) BUN 31 H (7-21) mg/dL Creatinine 1.0 (0.5-1.4) mg/dL Est GFR ( Amer) > 60 Est GFR (Non-Af Amer) > 60 POC Glucose (mg/dL) (65-110) mg/dL Random Glucose 70 (70-110) mg/dL Calcium 8.8 (8.4-10.5) mg/dL Total Bilirubin 0.7 (0.2-1.3) mg/dL AST 223 H (15-59) U/L ALT 68 H (7-56) U/L Alkaline Phosphatase 92 (38-133) U/L Troponin I ng/mL Total Protein 7.1 (5.8-8.3) g/dL Albumin 3.8 (3.0-4.8) g/dL Globulin 3.3 gm/dL Albumin/Globulin Ratio 1.2 (1.1-1.8) Triglycerides 153 (35-160) mg/dL Cholesterol 209 H (130-200) mg/dL LDL Cholesterol Direct 101 (0-129) mg/dL HDL Cholesterol 62 H (29-60) mg/dL TSH 3rd Generation 0.32 L (0.46-4.68) mIU/mL 09/17/16 09/17/16 09/17/16 Range/Units 21:05 18:03 17:04 WBC (4.5-11.0) 10^3/ul RBC (3.5-6.1) 10^6/uL Hgb (14.0-18.0) gm/dL Hct (42.0-52.0) % MCV (80.0-105.0) fL MCH (25.0-35.0) pg MCHC (31.0-37.0) g/dl RDW (11.5-14.5) % Plt Count (120.0-450.0) 10^3/uL MPV (7.0-11.0) fl Sodium (132-148) mmol/L Potassium (3.6-5.0) mmol/L Chloride (98-107) mmol/L Carbon Dioxide (21-33) mmol/L Anion Gap (10-20) BUN (7-21) mg/dL Creatinine (0.5-1.4) mg/dL Est GFR ( Amer) Est GFR (Non-Af Amer) POC Glucose (mg/dL) 139 H 165 H (65-110) mg/dL Random Glucose (70-110) mg/dL Calcium (8.4-10.5) mg/dL Total Bilirubin (0.2-1.3) mg/dL AST (15-59) U/L ALT (7-56) U/L Alkaline Phosphatase (38-133) U/L Troponin I 46.70 H* D ng/mL Total Protein (5.8-8.3) g/dL Albumin (3.0-4.8) g/dL Globulin gm/dL Albumin/Globulin Ratio (1.1-1.8) Triglycerides (35-160) mg/dL Cholesterol (130-200) mg/dL LDL Cholesterol Direct (0-129) mg/dL HDL Cholesterol (29-60) mg/dL TSH 3rd Generation (0.46-4.68) mIU/mL 09/17/16 09/17/16 09/17/16 Range/Units 16:04 14:59 13:51 WBC (4.5-11.0) 10^3/ul RBC (3.5-6.1) 10^6/uL Hgb (14.0-18.0) gm/dL Hct (42.0-52.0) % MCV (80.0-105.0) fL MCH (25.0-35.0) pg MCHC (31.0-37.0) g/dl RDW (11.5-14.5) % Plt Count (120.0-450.0) 10^3/uL MPV (7.0-11.0) fl Sodium (132-148) mmol/L Potassium (3.6-5.0) mmol/L Chloride (98-107) mmol/L Carbon Dioxide (21-33) mmol/L Anion Gap (10-20) BUN (7-21) mg/dL Creatinine (0.5-1.4) mg/dL Est GFR ( Amer) Est GFR (Non-Af Amer) POC Glucose (mg/dL) 147 H 119 H 156 H (65-110) mg/dL Random Glucose (70-110) mg/dL Calcium (8.4-10.5) mg/dL Total Bilirubin (0.2-1.3) mg/dL AST (15-59) U/L ALT (7-56) U/L Alkaline Phosphatase (38-133) U/L Troponin I ng/mL Total Protein (5.8-8.3) g/dL Albumin (3.0-4.8) g/dL Globulin gm/dL Albumin/Globulin Ratio (1.1-1.8) Triglycerides (35-160) mg/dL Cholesterol (130-200) mg/dL LDL Cholesterol Direct (0-129) mg/dL HDL Cholesterol (29-60) mg/dL TSH 3rd Generation (0.46-4.68) mIU/mL 09/17/16 09/17/16 09/17/16 Range/Units 12:41 12:20 11:37 WBC (4.5-11.0) 10^3/ul RBC (3.5-6.1) 10^6/uL Hgb (14.0-18.0) gm/dL Hct (42.0-52.0) % MCV (80.0-105.0) fL MCH (25.0-35.0) pg MCHC (31.0-37.0) g/dl RDW (11.5-14.5) % Plt Count (120.0-450.0) 10^3/uL MPV (7.0-11.0) fl Sodium 138 (132-148) mmol/L Potassium 4.0 (3.6-5.0) mmol/L Chloride 97 L (98-107) mmol/L Carbon Dioxide 33 (21-33) mmol/L Anion Gap 12 (10-20) BUN 37 H (7-21) mg/dL Creatinine 1.0 (0.5-1.4) mg/dL Est GFR ( Amer) > 60 Est GFR (Non-Af Amer) > 60 POC Glucose (mg/dL) 214 H 239 H (65-110) mg/dL Random Glucose 195 H (70-110) mg/dL Calcium 9.3 (8.4-10.5) mg/dL Total Bilirubin 0.6 (0.2-1.3) mg/dL AST 394 H (15-59) U/L ALT 67 H (7-56) U/L Alkaline Phosphatase 91 (38-133) U/L Troponin I 99.00 H* D ng/mL Total Protein 7.2 (5.8-8.3) g/dL Albumin 3.8 (3.0-4.8) g/dL Globulin 3.4 gm/dL Albumin/Globulin Ratio 1.1 (1.1-1.8) Triglycerides (35-160) mg/dL Cholesterol (130-200) mg/dL LDL Cholesterol Direct (0-129) mg/dL HDL Cholesterol (29-60) mg/dL TSH 3rd Generation (0.46-4.68) mIU/mL 09/17/16 09/17/16 09/17/16 Range/Units 11:09 10:20 09:16 WBC (4.5-11.0) 10^3/ul RBC (3.5-6.1) 10^6/uL Hgb (14.0-18.0) gm/dL Hct (42.0-52.0) % MCV (80.0-105.0) fL MCH (25.0-35.0) pg MCHC (31.0-37.0) g/dl RDW (11.5-14.5) % Plt Count (120.0-450.0) 10^3/uL MPV (7.0-11.0) fl Sodium (132-148) mmol/L Potassium (3.6-5.0) mmol/L Chloride (98-107) mmol/L Carbon Dioxide (21-33) mmol/L Anion Gap (10-20) BUN (7-21) mg/dL Creatinine (0.5-1.4) mg/dL Est GFR ( Amer) Est GFR (Non-Af Amer) POC Glucose (mg/dL) 302 H 289 H 347 H (65-110) mg/dL Random Glucose (70-110) mg/dL Calcium (8.4-10.5) mg/dL Total Bilirubin (0.2-1.3) mg/dL AST (15-59) U/L ALT (7-56) U/L Alkaline Phosphatase (38-133) U/L Troponin I ng/mL Total Protein (5.8-8.3) g/dL Albumin (3.0-4.8) g/dL Globulin gm/dL Albumin/Globulin Ratio (1.1-1.8) Triglycerides (35-160) mg/dL Cholesterol (130-200) mg/dL LDL Cholesterol Direct (0-129) mg/dL HDL Cholesterol (29-60) mg/dL TSH 3rd Generation (0.46-4.68) mIU/mL 09/17/16 09/17/16 Range/Units 08:08 06:30 WBC (4.5-11.0) 10^3/ul RBC (3.5-6.1) 10^6/uL Hgb (14.0-18.0) gm/dL Hct (42.0-52.0) % MCV (80.0-105.0) fL MCH (25.0-35.0) pg MCHC (31.0-37.0) g/dl RDW (11.5-14.5) % Plt Count (120.0-450.0) 10^3/uL MPV (7.0-11.0) fl Sodium (132-148) mmol/L Potassium (3.6-5.0) mmol/L Chloride (98-107) mmol/L Carbon Dioxide (21-33) mmol/L Anion Gap (10-20) BUN (7-21) mg/dL Creatinine (0.5-1.4) mg/dL Est GFR ( Amer) Est GFR (Non-Af Amer) POC Glucose (mg/dL) 439 H* (65-110) mg/dL Random Glucose (70-110) mg/dL Calcium (8.4-10.5) mg/dL Total Bilirubin (0.2-1.3) mg/dL AST (15-59) U/L ALT (7-56) U/L Alkaline Phosphatase (38-133) U/L Troponin I 55.30 H* D ng/mL Total Protein (5.8-8.3) g/dL Albumin (3.0-4.8) g/dL Globulin gm/dL Albumin/Globulin Ratio (1.1-1.8) Triglycerides (35-160) mg/dL Cholesterol (130-200) mg/dL LDL Cholesterol Direct (0-129) mg/dL HDL Cholesterol (29-60) mg/dL TSH 3rd Generation (0.46-4.68) mIU/mL Laboratory Results - last 24 hr 09/17/16 09/17/16 09/17/16 06:30 08:08 09:16 WBC RBC Hgb Hct MCV MCH MCHC RDW Plt Count MPV Sodium Potassium Chloride Carbon Dioxide Anion Gap BUN Creatinine Est GFR ( Amer) Est GFR (Non-Af Amer) POC Glucose (mg/dL) 439 H* 347 H Random Glucose Calcium Total Bilirubin AST ALT Alkaline Phosphatase Troponin I 55.30 H* D Total Protein Albumin Globulin Albumin/Globulin Ratio Triglycerides Cholesterol LDL Cholesterol Direct HDL Cholesterol TSH 3rd Generation 09/17/16 09/17/16 09/17/16 10:20 11:09 11:37 WBC RBC Hgb Hct MCV MCH MCHC RDW Plt Count MPV Sodium Potassium Chloride Carbon Dioxide Anion Gap BUN Creatinine Est GFR ( Amer) Est GFR (Non-Af Amer) POC Glucose (mg/dL) 289 H 302 H 239 H Random Glucose Calcium Total Bilirubin AST ALT Alkaline Phosphatase Troponin I Total Protein Albumin Globulin Albumin/Globulin Ratio Triglycerides Cholesterol LDL Cholesterol Direct HDL Cholesterol TSH 3rd Generation 09/17/16 09/17/16 09/17/16 12:20 12:41 13:51 WBC RBC Hgb Hct MCV MCH MCHC RDW Plt Count MPV Sodium 138 Potassium 4.0 Chloride 97 L Carbon Dioxide 33 Anion Gap 12 BUN 37 H Creatinine 1.0 Est GFR ( Amer) > 60 Est GFR (Non-Af Amer) > 60 POC Glucose (mg/dL) 214 H 156 H Random Glucose 195 H Calcium 9.3 Total Bilirubin 0.6 AST 394 H ALT 67 H Alkaline Phosphatase 91 Troponin I 99.00 H* D Total Protein 7.2 Albumin 3.8 Globulin 3.4 Albumin/Globulin Ratio 1.1 Triglycerides Cholesterol LDL Cholesterol Direct HDL Cholesterol TSH 3rd Generation 09/17/16 09/17/16 09/17/16 14:59 16:04 17:04 WBC RBC Hgb Hct MCV MCH MCHC RDW Plt Count MPV Sodium Potassium Chloride Carbon Dioxide Anion Gap BUN Creatinine Est GFR ( Amer) Est GFR (Non-Af Amer) POC Glucose (mg/dL) 119 H 147 H 165 H Random Glucose Calcium Total Bilirubin AST ALT Alkaline Phosphatase Troponin I Total Protein Albumin Globulin Albumin/Globulin Ratio Triglycerides Cholesterol LDL Cholesterol Direct HDL Cholesterol TSH 3rd Generation 09/17/16 09/17/16 09/18/16 18:03 21:05 06:10 WBC 11.4 H RBC 4.23 Hgb 13.4 L Hct 37.9 L MCV 89.6 MCH 31.7 MCHC 35.4 RDW 13.2 Plt Count 182 MPV 10.6 Sodium Potassium Chloride Carbon Dioxide Anion Gap BUN Creatinine Est GFR ( Amer) Est GFR (Non-Af Amer) POC Glucose (mg/dL) 139 H Random Glucose Calcium Total Bilirubin AST ALT Alkaline Phosphatase Troponin I 46.70 H* D Total Protein Albumin Globulin Albumin/Globulin Ratio Triglycerides Cholesterol LDL Cholesterol Direct HDL Cholesterol TSH 3rd Generation 09/18/16 09/18/16 06:10 06:10 WBC RBC Hgb Hct MCV MCH MCHC RDW Plt Count MPV Sodium 138 Potassium 3.3 L Chloride 96 L Carbon Dioxide 34 H Anion Gap 11 BUN 31 H Creatinine 1.0 Est GFR ( Amer) > 60 Est GFR (Non-Af Amer) > 60 POC Glucose (mg/dL) Random Glucose 70 Calcium 8.8 Total Bilirubin 0.7 AST 223 H ALT 68 H Alkaline Phosphatase 92 Troponin I Total Protein 7.1 Albumin 3.8 Globulin 3.3 Albumin/Globulin Ratio 1.2 Triglycerides 153 Cholesterol 209 H LDL Cholesterol Direct 101 HDL Cholesterol 62 H TSH 3rd Generation 0.32 L EKG/Cardiology Studies: Cardiology / EKG Studies 09/17/16 12:26 EKG [ELECTROCARDIOGRAM] Stat Comment: Reason For Exam: ACS Fingerstick Blood Sugar Results: 180 Review of Systems - Review of Systems All systems: reviewed and no additional remarkable complaints except (as per HPI ) - Constitutional Constitutional: absent: Fever, Chills - EENT Eyes: As Per HPI - Cardiovascular Cardiovascular: As Per HPI - Respiratory Respiratory: Cough, Dyspnea - Gastrointestinal Gastrointestinal: As Per HPI - Genitourinary Genitourinary: As Per HPI, Dysuria. absent: Hematuria - Musculoskeletal Musculoskeletal: As Par HPI, Numbness, Stiffness, Tingling - Neurological Neurological: As Per HPI - Endocrine Endocrine: Polyuria Critical Care Progress Note - Nutrition Nutrition: Nutrition Category Date Time Status NPO Diet [DIET] Diets 09/18/16 Breakfast Ordered Assessment/Plan - Assessment and Plan (Free Text) Assessment: 71M with PMH including CAD s/p 7stents, DM, frequent falls with SAH in 06/2016, HTN, COPD who is in the ICU for NSTEMI and DKA Neuro: AA&Oriented to person and place, oriented to year but not month, complains of headache for 3 months since SAH, chronic BL finger numbness, and gait instability. No acute changes after fall, denies recent head traumt CNII-XI intact, gross neuromuscular function intact CT head: no acute pathology continue to monitor Continue neurontin and phenobarbital Follow up neuro recs Cardio: No complaints, normocardic, mild hypotension troponin: max 99 last night, down to 46.7 today Cardiac catheterization: 25% LVEF. 100% occlusion in the obtuse branch of the circumflex artery, drug eluting stent placed EKG: new onset LBBB yesterday. Repeat EKG s/p cath: much improved. possible septal infarct and lateral ischemia: f/u official report Pulmonary vascular congestion improved on CXR Per cardio: continue ASA/Plavix Pulm: c/o dyspnea and non-productive cough overnight SaO2 97-100% on 2L NC CXR: decreased vascular congestion, mild worsening of RLL infiltrate Continue to monitor, supplement O2 as needed to keep SaO2 >97% GI: No complaints abdominal exam benign Continue to monitor start carb controlled diet for lunch Endo: Glucose 51 on fingerstick this AM. Administered 1am D50, responded appropriately , anion gap closed Add levemir 10mg PO BID, continue ISS med dose TSH low--0.32 Continue to monitor Follow up endo recs Neph: Hypokalemia 3.0, supplemented with KDur and IV KCl UOP adequate UA: hemolyzed blood, no leukocyte esterase, urine culture pending Continue to monitor supplement electrolytes as needed ID: Complaining of cough, WBC increased to 11.8, slight worsening of RLL infiltrate on CXR procalcitonin elevated at 1.1 Continue to monitor Continue antibiotics per ID Ppx: pepcid, SQH Patient seen and discussed with Dr. Guzmán <Sonu Guzmán - Last Filed: 09/23/16 16:01> CCU Objective - Patient Studies Lab Studies: Lab Studies 09/20/16 09/20/16 09/20/16 Range/Units 21:50 20:48 15:57 POC Glucose (mg/dL) 343 H 255 H 228 H (65-110) mg/dL 09/20/16 Range/Units 11:22 POC Glucose (mg/dL) 192 H (65-110) mg/dL Laboratory Results - last 24 hr 09/20/16 09/20/16 09/20/16 11:22 15:57 20:48 POC Glucose (mg/dL) 192 H 228 H 255 H 09/20/16 21:50 POC Glucose (mg/dL) 343 H Critical Care Progress Note - Nutrition Nutrition: Nutrition Category Date Time Status Consistent Carbohydrate [DIET] Diets 09/18/16 Lunch Ordered Addendum Addendum: 09/23/16 15:57 patient was seen, examined and discussed with dr. Perez. Her note reflects my exam, assessment and plan. Meds/Labs/ONE reviewed. 71 yo male with STEMI in the setting of DKA. AG closed, PCI done, hemodynamically and repsiratory joseph stable. Ok to downgrade to tele ccm time 40 min
[2016-09-18 08:09] LABS: MAGNESIUM 2.2 mg/dL (1.7-2.2); PHOSPHOROUS 3.4 mg/dL (2.5-4.5)
--- NOTE | 2016-09-18 08:12 | CON ---
DATE: 09/17/2016 LOCATION: CCU 128, room 3. HISTORY OF PRESENT ILLNESS: This is a 71-year-old male with known history of type 2 diabetes on oral hypoglycemic therapy, presenting here with sudden onset of precordial chest pain and is now being re ferred for diabetic evaluation because of persistent hyperglycemic accelerations as noted thereof. PAST MEDICAL HISTORY: History of type 2 diabetes, currently on a combination of metformin given as 5 00 mg b.i.d. and Amaryl given as 1 mg daily as noted; history of hypertensive cardiovascular disease and dyslipidemia, history of coronary artery disease and previous multiple coronary stent placements with prior admissions also with congestive heart failure, history of seizure disorder since childhood and currently on anti-seizure medications, history of recent frequent near syncopal and syncopal epi sodes as noted, history of diffuse osteoarthritis with lower back pain as noted. FAMILY HISTORY: Positive for diabetes and hypertension. SOCIAL HISTORY: The patient has supportive family. No known substance use. REVIEW OF SYSTEMS: Has been noted by the family to have increasing bouts of lethargy, confusion and disorientation with supervening generalized body weakness as noted thereof. He was actually controll ed on a dual oral hypoglycemic drug therapy using metformin at 500 mg b.i.d. and glimepiride at 1 mg daily. Review of systems as mentioned above include generalized body weakness with easy fatigability and tiredness and suboptimal energy level. Also admits to progressive bouts of dizziness and lighth eadedness, worse on the day of admission. No chest pains or palpitations or PNDs. More of his oral intake has been poor and variable with nausea and dyspepsia and vague upper abdominal pain. ____. Hi s oral intake has been variable with nausea, dyspepsia, and supervening intractable vomiting episodes . He also admits to marked polyuria, nocturia and polydipsia as noted. PHYSICAL EXAMINATION: GENERAL: This is an average built male in no apparent distress. VITAL SIGNS: Blood pressure of 140/80, pulse of 70 beats per minute and regular, temperature 98, res pirations 20, height is 5 feet 6 inches, weight is 127 pounds. HEENT: Head normocephalic. Eyes anicteric with pink conjunctivae. Fundoscopy not possible at this time. Ears, nose and throat otherwise normal. NECK: Supple. Thyroid gland is normal size. No carotid bruits or any cervical adenopathy. CARDIOPULMONARY: There is an adynamic precordium. S1, S2 is rapid and regular. LUNGS: Clear to auscultation. ABDOMEN: Flat, soft with positive bowel sounds. EXTREMITIES: No peripheral edema. Pulses are +2 bilaterally. LABORATORY DATA: The chemistry showed a BUN of 37, sodium 132, potassium 5.5, chloride 89, CO2 25, g lucose 813 and creatinine 1.2. The glucose levels have ranged from 347-443 mg/dL. His troponin leve l is elevated at 55.30. ASSESSMENT: This is a 71-year-old male with uncontrolled and decompensated type 2 insulin-requiring diabetes, presenting here with hyperosmolar hyperglycemic state and dehydration with prerenal azotemi a and spurious hyponatremia as noted thereof. Will also expect mild metabolic acidosis in the presen ce of underlying increased hyperosmolarity. There is also a significant history of coronary artery d isease with multiple coronary stent placements and diabetic polyneuropathy and nephropathy as noted. PLAN OF MANAGEMENT: Will concur with the present management using the insulin drip infusion for more intensive insulin therapy although, because of the aforementioned hyperosmolar hyperglycemic state, would expect dramatic improvement just with IV hydration as noted. They really do need an insulin dr ip, especially with a bicarb and CO2 of 25 and a slightly elevated anion gap which is expected in thi s underlying metabolic decompensation. Would go ahead and start him on a basal and bolus insulin reg imen which is more physiologic, once the insulin drip is discontinued tonight. Will continue the vig orous IV hydration to optimize his metabolic and IV fluid changes. Will obtain serial chemistries an d supplement accordingly as needed. Will also obtain a hemoglobin A1c to confirm his prior glycemic control, and baseline thyroid function studies will be ordered. Will follow. Lottie Dash MD cc: [id number] TT: 09/17/2016 15:42:01 Confirmation # [id number] Dictation # [id number] mn 09/17/2016 14:46:56
--- NOTE | 2016-09-18 08:26 | PN ---
DATE: 09/18/2016(650am--735am) SUBJECTIVE: The patient appears comfortable at rest. He is not short of breath. PHYSICAL EXAMINATION: VITAL SIGNS: Temperature is 97.7, pulse 70, respirations 18, blood pressure 95/ 45. Oxygen saturation on nasal cannula is 99%. HEENT: Normocephalic, atraumatic. No JVD. CARDIOVASCULAR: Positive S1, S2. No S3. LUNGS: Minimal crackles at both lung bases. No rhonchi. No wheezing. EXTREMITIES: The patient is status post right BKA. The left lower extremity shows no clubbing, cyanosis, or edema. The left calf is nontender to palpation. GASTROINTESTINAL: Abdomen is soft, nontender, nondistended. Bowel sounds are positive. SKIN: No acute rash. NEUROLOGIC: Limited at the present time. PERTINENT LABORATORY DATA: Chest x-ray was done this morning and reviewed. There appears to be a slight decrease in the right basilar opacity. IMPRESSION: 1. Acute myocardial infarction. 2. History of extensive coronary artery disease, status post 7 stents. 3. Rule out pneumonia -- right lower lobe. 4. Uncontrolled diabetes mellitus. 5. Electrolyte abnormalities. PLAN: The patient appears very comfortable this morning. He is not short of breath at rest. He has no chest pain. He states he is feeling much better this morning. I did discuss the case with the night nurse at length. The night nurse stated the patient had a good night. I did review the chest x-ray as above. There appears to be a slight decrease in the right basilar opacity. Procalcitonin is pending. I will continue with the current antibiotic therapy for now. I would continue with the cardiology evaluation as per Dr. Corey. His input is noted. The patient is for cardiac catheterization later today. Input by neurology (Dr. Ayers) is also noted. The patient is certainly clinically improved -- compared to the initial presentation. However, his overall status/ prognosis does remain very guarded. I will discuss the above with the entire ICU team in the next few moments. I will discuss the above with Dr. Montes later this morning. Vasquez Malik MD cc: [phone] TT: 09/18/2016 08:25:54 Confirmation # [id number] Dictation # [id number] dn PORFIRIO
--- NOTE | 2016-09-18 08:32 | PN ---
DATE: 09/18/2016 The patient is more alert and awake. He is oriented x 3. PHYSICAL EXAMINATION: VITAL SIGNS: Blood pressure is 95/45 with a heart rate in the 70s. NECK: Negative JVD. LUNGS: Without rales. HEART: S1, S2. EXTREMITIES: Without edema. LABORATORY DATA: The hemoglobin is 13.4. Chemistries: BUN and creatinine are 31 and 1.0 with a tro ponin of 46. The glucose is 70. IMPRESSION: 1. Status post non-ST elevation myocardial infarction. 2. Coronary artery disease. 3. Resolution of hyperosmolar state. 4. Resolution of his confusion. The patient is now oriented x 3. 5. Diabetes mellitus. Given these findings, I have discussed with the patient about the need for cardiac catheterization. Risks, benefits have been discussed with the patient. He understands. We will proceed with cardiac catheterization today. Juancarlos Corey MD cc: [id number] TT: 09/18/2016 08:32:37 Confirmation # [id number] Dictation # [id number] jn
[2016-09-18] MEDS ORDERED: Lidocaine 2% Inj (20ml) ONE (08:37)
[2016-09-18] MEDS ORDERED: Iodixanol 320 MG/ML 200 ML BOTTLE IV ONE (08:38)
[2016-09-18] MEDS ORDERED: Iohexol 350mgl/ml 50 ML ONE (08:38)
[2016-09-18] MEDS ORDERED: Iodixanol 320 MG/ML 100 ML BOTTLE IV ONE (08:38)
[2016-09-18] MEDS ORDERED: Midazolam 2 MG/2 ML VIAL ONE ×2 (08:38→09:39)
[2016-09-18] MEDS ORDERED: Nitroglycerin 50mg in D5W 50 MG/250 ML BOTTLE IV ONE (08:39)
--- NOTE | 2016-09-18 09:00 | PN ---
DATE: 09/18/2016 I saw him in the intensive care unit. He is in the process of being moved down to the entry level lab technician for c ardiac catheterization this morning. He is alert, fairly comfortable. He is asking for physical the rapy when he is done with the hospital. MEDICATIONS: He is on Amaryl, chewable aspirin, Celexa, Desyrel, Glucophage, insulin, IV fluids, Lev dion, Lipitor, Lopressor, Lovenox, Neurontin, nitroglycerin, Pentoxil, phenobarbital, Plavix, Rocephi n, and Zithromax. PHYSICAL EXAMINATION: VITAL SIGNS: Temp 98.1, 73 pulse, 18 respiratory rate, 103/63 blood pressure, 95% O2 sat on nasal ca nnula. HEAD: Atraumatic, normocephalic. GENERAL: He is alert and talking to me. No chest pain, no shortness of breath. He is aware of katherin g to cath. HEART: Regular rate. LUNGS: Decreased breath sounds bilaterally but poor inspiration. ABDOMEN: Soft. EXTREMITIES: He has a right BKA. Left leg has no edema. He might have physical therapy and subacute rehab when we are done with him here. He is going for th today. He already has 7 stents placed already. He is being seen by pulmonary, neuro, endocrinology, cardiology. ASSESSMENT AND PLAN: He has multiple problems. He came in with extremely high blood sugars over 800 . He has an NSTEMI, right bundle-branch block, unstable angina, mild confusion, possible pneumonia, diabetes, and history of right BKA. I will get case management involved. We will check his labs marilou orrow. LABORATORY DATA: He has 11.4 white count, 13.4 hemoglobin, 37.9 hematocrit with 182 platelets. He h as a 138 sodium, potassium 3.3, and we replaced the potassium. BUN 31, creatinine 1. GFR is greater than 60. Sugar is 70. Calcium is 8.8. Total bili is 0.7. AST is 223. ALT is 68. Alk phos is 92 . Last troponin was 46.7. He is going for cath this morning. Keith Montes DO cc: [id number] TT: 09/18/2016 08:59:41 Confirmation # [id number] Dictation # [id number] jn
[2016-09-18] MEDS ORDERED: Eptifibatide 20 mg/10mL Inj IVP ONE (09:23)
--- NOTE | 2016-09-18 09:35 | RAD ---
HISTORY: follow up COMPARISON: 09/17/2016 FINDINGS: LUNGS: No active pulmonary disease. PLEURA: No significant pleural effusion identified, no pneumothorax apparent. CARDIOVASCULAR: There is decreased vascular congestion. There is a persistent infiltrate in the right lower lobe OSSEOUS STRUCTURES: No significant abnormalities. VISUALIZED UPPER ABDOMEN: Normal. OTHER FINDINGS: None. IMPRESSION: Decreased vascular congestion. Right lower lobe infiltrate
[2016-09-18] MEDS ORDERED: Potassium Chloride 20 mEq ER Tab PO ONE (10:09)
[2016-09-18] MEDS ORDERED: Sodium Chloride 0.9% 1,000 ML IV SCH (10:15)
[2016-09-18] MEDS: cefTRIAXone 1 gm 1 GM/100 ML BAG IVPB SCH (10:36)
[2016-09-18] MEDS: Azithromycin 500MG/NS 250ml 500 MG/250 ML BAG IVPB SCH (10:36)
--- NOTE | 2016-09-18 11:34 | CARDCATH ---
PROCEDURE DATE: 09/18/2016 HISTORY: The patient is a 71-year-old male who presented with hyperosmolar state. A non-STEMI was a lso noted. After correction of his metabolic abnormalities, the patient was brought to the cardiac c atheterization lab. PROCEDURE: Left heart catheterization with coronary angiography and left ventriculogram, followed by PTCA and stent of an occluded second obtuse marginal branch of the circumflex artery. The right femoral artery was cannulated with a 6-German sheath. There were no complications. Findings on catheterization revealed a left ventricle that was globally dilated and diffusely hypokin etic with an estimated ejection fraction of 25%. His coronary anatomy revealed a right dominant circulation. The RCA revealed a long stent in the RCA was diffusely diseased with 80% stenosis in the distal porti on of the posterolateral branch, which was diffusely diseased. The stent revealed multiple noncritic al lesions throughout its course. The left main artery revealed a 30%-40% stenosis at its ostium. The LAD revealed 2 stents that were placed in the past. The distal stent which was in the apical por tion of the LAD revealed an 80% in-stent restenosis. The circumflex artery revealed a small to moderate size first obtuse marginal branch, which revealed diffuse atherosclerosis with 80% stenosis in the mid portion. The second obtuse marginal branch was occluded and is likely the infarct related artery. The AV groove branch of the circumflex revealed diffuse atherosclerosis. The patient was started on intravenous Angiomax. PRU testing revealed good response to Plavix. The patient was given a bolus of Integrilin. The guiding catheter was placed in the ostium of the left main artery. An ATW wire followed by a Trimmer Climber ss-It wire was used to cross the total occlusion. Multiple balloon inflations from 2.0-2.5 were use d to dilate the entire length of the obtuse marginal branch. After obtaining reasonable flow, a 2.5 mm x 30 mm drug-eluting stent was placed and deployed in the mid portion of the obtuse marginal branc h, which is likely the point of occlusion. Repeat coronary angiography revealed an excellent result with no residual stenoses and return of CARLOTTA 3 flow. Angio-Seal was used to close the femoral artery site. The patient tolerated the procedure well. SUMMARY: The procedure was a successful PTCA and stent of an occluded second obtuse marginal branch and stented with a drug-eluting stent. Cardiac catheterization revealed multivessel CAD with left ventricle that was diffusely diseased with an ejection fraction of 25%. Given these findings, the patient will need to remain on aspirin and Plavix. The patient will go poppy k to the ICU for continued recovery for treatment of his DKA as well as his non-STEMI. Juancarlos Corey MD cc: [id number] TT: 09/18/2016 11:33:17 camacho
--- NOTE | 2016-09-18 16:19 | CARD ---
APPROVED REPORT EKG Measurement Heart [id number] MS [id number] <Conclusion> Normal sinus rhythm Septal infarct, age undetermined T wave abnormality, consider lateral ischemia Abnormal ECG
--- NOTE | 2016-09-18 16:51 | PN ---
DATE: 09/18/2016 LOCATION: CCU 128, room 3. SUBJECTIVE: This is a 71-year-old male with recent uncontrolled type 2 insulin-requiring diabetes, p resenting here with hyperosmolar hyperglycemic state and ketosis and received vigorous IV hydration w ith intensive insulin therapy using an insulin drip infusion as noted. He has since then improved cl inically and metabolically as noted thereof. His oral intake remains quite variable as per the [facility] staff and the latest chemistries today showed a BUN of 31, sodium 138, potassium 3.3, chloride 96, CO2 of 34, glucose 70 and creatinine 1.0. His hemoglobin A1c is 15.4%, which is extremely elevated and indicative of suboptimal metabolic control of his diabetic condition even prior to this admission as noted thereof. So for now, we will modify his basal insulin regimen and increase the Levemir to 12 units subQ at bedtime daily to start tonight. We will also increase the Amaryl to 2 mg p.o. b.i.d . before meals to start at dinnertime today as ordered. We will switch him over to a low dose covera ge scale using regular insulin before meals and at bedtime to obviate hypoglycemia and detailed order s have been given. As his oral intake improves and also as the glycemic levels fluctuate with mealti mes, then we will start him back on the low dose fixed dose of Humalog given before each meal as chantell cated. We will obtain serial chemistries and supplement accordingly as needed. We will follow. Lottie Dsah MD cc: [id number] TT: 09/18/2016 16:50:55 Confirmation # [id number] Dictation # [id number] gilbert
[2016-09-18] MEDS: Insulin Reg-LOW-Coverage SC SCH ×2 (17:28→22:29)
[2016-09-18] MEDS ORDERED: Insulin Detemir 100 units/ml Vial (Levemir) SC SCH ×2 (18:00→22:00)
[2016-09-18] MEDS ORDERED: Alum-Mag Hydrox-Simethicone Susp (30 mL) PO ONE (21:35)
--- NOTE | 2016-09-19 08:55 | RAD ---
HISTORY: follow up COMPARISON: 09/18/2016 FINDINGS: LUNGS: Increasing bilateral perihilar infiltrates are seen. The pattern is most consistent with CHF. Pneumonia cannot be excluded PLEURA: No significant pleural effusion identified, no pneumothorax apparent. CARDIOVASCULAR: Mild cardiomegaly OSSEOUS STRUCTURES: No significant abnormalities. VISUALIZED UPPER ABDOMEN: Normal. OTHER FINDINGS: None. IMPRESSION: Increasing bilateral perihilar infiltrates are seen. The pattern is most consistent with CHF. Pneumonia cannot be excluded
--- NOTE | 2016-09-19 15:05 | CARD ---
APPROVED REPORT EKG Measurement Heart [id number] [place] [id number] [id number] <Conclusion> Normal sinus rhythm Left axis deviation Septal infarct, age undetermined T wave abnormality, consider lateral ischemia Abnormal ECG
--- NOTE | 2016-09-19 15:05 | PN ---
DATE: 09/19/2016 SUBJECTIVE: The patient is status post non-STEMI. He is in bed complaining of nausea after eating s ome fruit. PHYSICAL EXAMINATION: VITAL SIGNS: Stable. NECK: Negative JVD. LUNGS: Without rales. HEART: S1, S2. EXTREMITIES: Without edema. LABORATORIES: Not available due to our computer systems being down. IMPRESSION: 1. Status post non-ST elevation myocardial infarction. 2. Status post successful percutaneous transluminal coronary angioplasty and stent of an occluded obt use marginal branch. 3. Severe ischemic dilated cardiomyopathy. 4. Multivessel coronary artery disease with multiple stents placed previously. 5. Diabetes, out of control. PLAN: Given these findings, we will review the echocardiogram. We will need to review his laborator ies once the computer system is back up. Juancarlos Corey MD cc: [id number] TT: 09/19/2016 10:44:03 Confirmation # [id number] Dictation # [id number] gilbert
--- NOTE | 2016-09-19 21:30 | PN ---
DATE: 09/19/2016 ROOM: 272 SUBJECTIVE: This is a 71-year-old male with recent uncontrolled type 2 insulin-requiring diabetes, n ow being followed closely for metabolic management. His glycemic levels are fluctuating, but much im proved at this time. His oral intake also remains quite variable as noted thereof. His glucose valu es today have ranged from 188 to 267 mg/dL. It was 163 prebreakfast this morning and 244 at bedtime last night. The latest chemistry showed a BUN of 31, sodium 138, potassium 3.3, chloride 96, CO2 of 34, glucose 70 and creatinine 1.0. So, at this time, we will modify once again his oral hypoglycemic therapy and increase the Amaryl to 4 mg p.o. b.i.d. before meals as ordered. We will also increase the basal insulin with Levemir to be given as 14 units subQ at bedtime daily to start tonight. We wi ll continue the low-dose correction scale using regular insulin as ordered. We will obtain serial ch emistries and supplement accordingly as needed. We will follow. Lottie Dash MD cc: [id number] TT: 09/19/2016 21:29:22 Confirmation # [id number] Dictation # [id number] james
[2016-09-19] MEDS: Insulin Reg-LOW-Coverage SC SCH (21:35)
[2016-09-19] MEDS ORDERED: Insulin Detemir 100 units/ml Vial (Levemir) SC SCH (22:00)
--- NOTE | 2016-09-19 22:00 | PN ---
DATE: 09/19/2016 I saw him early this morning in the intensive care unit at [facility]. The computer system was down. I could not dictate until this evening. I came back to the hospital to dictate. I saw him this morning in bed. The first thing he told me, he is having indigestion. He is status post catheterization with Dr. Juancarlos Corey with stent placement, which took away the other chest pain he had. MEDICATIONS: He is on Amaryl, Celexa, Desyrel, Ecotrin, Glucophage, insulin, Levemir, Lipitor, Lopressor, Neurontin, nitroglycerin, Pentoxil, phenobarbital, Plavix. I added Protonix IV for the indigestion. He is on Rocephin and azithromycin for possible pneumonia. PHYSICAL EXAMINATION: VITAL SIGNS: Are 98.9 temp, 76 pulse, 117/66 blood pressure, 20 respiratory rate, 98% O2 sat. HEENT: Head is atraumatic, normocephalic. Throat is moist. NECK: Supple. HEART: Regular rate. LUNGS: Decreased breath sounds, but clear. ABDOMEN: Soft. EXTREMITIES: He has a right BKA, but no edema in the left leg. LABORATORY DATA: He has an 11.4 white count, a little bit elevated, 13.4 hemoglobin, 37.9 hematocrit, platelets. He has a 138 sodium, potassium is 3.3. Will replace the potassium. BUN is 31, creatinine is 1, glucose is 70, calcium is 8.8, total bili is 0.7, AST is 223, ALT is 68, alk phos is 92. Troponin was 46.7. Albumin 3.8, cholesterol is 209. He had a 15.4 hemoglobin A1c, which means he is a very noncompliant diabetic, out of control. He is being seen by the motorcycle tester, cardiology, pulmonology, and the printed circuit boards contact printer. He has multiple problems. He is status post cpc-GV-ylryfadzg myocardial infarction, status post coronary angioplasty with stent, severe ischemic dilated cardiomyopathy with vessel coronary artery disease, diabetes out of control, status post right oakup-tia-mlxd amputation, and most probably esophagitis. Will continue with aggressive treatment and care. Check his labs tomorrow. Keith Montes DO cc: [id number] TT: 09/19/2016 21:59:20 Confirmation # [id number] Dictation # [id number] MTDD
[2016-09-20 05:36] VITALS: O2SAT 96
[2016-09-20 06:52] LABS: HEMATOCRIT 36.5 % (42.0-52.0); MEAN CELL VOLUME 90.3 fL (80.0-105.0); MEAN CORPUSCULAR HEMOGLOBIN 31.2 pg (25.0-35.0); MEAN CORPUSCULAR HGB CONC 34.5 g/dl (31.0-37.0); MEAN PLATELET VOLUME 10.6 fl (7.0-11.0); RED CELL DISTRIBUTION WIDTH 12.8 % (11.5-14.5); WHITE BLOOD COUNT 6.2 10^3/ul (4.5-11.0)
[2016-09-20 07:11] LABS: ALKALINE PHOSPHATASE 76 U/L (38-133); ALT/SGPT 41 U/L (7-56); AST/SGOT 59 U/L (15-59); BILIRUBIN,TOTAL 0.6 mg/dL (0.2-1.3); BLOOD UREA NITROGEN 14 mg/dL (7-21); CALCIUM 8.9 mg/dL (8.4-10.5); CARBON DIOXIDE 32 mmol/L (21-33); CHLORIDE 101 mmol/L (98-107); GFR AFRICAN-AMERICAN > 60; GLUCOSE,RANDOM 70 mg/dL (70-110); SODIUM 140 mmol/L (132-148); TOTAL PROTEIN 6.9 g/dL (5.8-8.3)
[2016-09-20] MEDS: Insulin Reg-LOW-Coverage SC SCH ×3 (08:00→17:18)
--- NOTE | 2016-09-20 08:18 | PN ---
DATE: 09/20/2016 SUBJECTIVE: The patient appears comfortable this morning. He is not short of breath at rest. PHYSICAL EXAMINATION: VITAL SIGNS: Temperature is 97.9, pulse 72, respirations 18, blood pressure 120 /70. Oxygen saturation on nasal cannula is 96%. HEENT: Normocephalic, atraumatic. No JVD. CARDIOVASCULAR: Positive S1, S2. No S3. LUNGS: Less crackles at the bases. No rhonchi. No wheezing. EXTREMITIES: The patient is status post right BKA. The left lower extremity shows no clubbing, cyanosis, or edema. The left calf is nontender to palpation. GASTROINTESTINAL: Abdomen is soft, nontender, nondistended. Bowel sounds are positive. SKIN: No acute rash. NEUROLOGIC: Limited at the present time. IMPRESSION: 1. Acute myocardial infarction. 2. Extensive coronary artery disease, status post 7 stents. 3. Right lower lobe pneumonia. 4. Uncontrolled diabetes mellitus. 5. Electrolyte abnormalities. PLAN: The patient appears very comfortable this morning. He is not short of breath at rest. He has no chest pain. He states he is feeling much better overall. I did discuss the case with the night nurse at length. The night nurse stated that the patient had a good night. On physical exam, there is no significant bronchospasm noted. In addition, there is no significant alveolar- arterial gradient. I did review the laboratory data. Procalcitonin -- done on 09/18/2016 -- is mildly positive. I would continue with the antibiotic coverage for now. There are no temperatures noted. The leukocytosis has now completely resolved. I would continue with the treatment for coronary artery disease and acute myocardial infarction as per cardiology. Input per Dr. Corey is noted. Clinical status of the patient is significantly improved -- compared to the initial presentation. However, again, the overall status/prognosis of this patient remains very guarded. I will discuss the above with Dr. oMntes. Vasquez Malik MD cc: [phone] TT: 09/20/2016 08:13:41 Confirmation # [id number] Dictation # [id number] en MTDD
--- NOTE | 2016-09-20 08:54 | PN ---
DATE: 09/20/2016 SUBJECTIVE: The patient's breathing and general feeling is much improved. PHYSICAL EXAMINATION: VITAL SIGNS: Blood pressure 120/70, heart rate is in the 70s. NECK: Negative JVD. LUNGS: Without rales. HEART: Reveals S1, S2. EXTREMITIES: Without edema. LABORATORY DATA: Hemoglobin is 12.6, white count is normalized at 6.2. BUN and creatinine are unrem arkable. The glucose is pending. IMPRESSION: 1. Status post hyperosmolar state. 2. Diabetes mellitus. 3. Status post wbt-QZ-ndyagiizd myocardial infarction. 4. Status post percutaneous transluminal coronary angioplasty and stent of an occluded circumflex ob tuse marginal branch. 5. Chronic obstructive pulmonary disease. 6. Dilated cardiomyopathy. PLAN: Given these findings, the patient is doing much, much better. We will adjust his medications which will include aspirin, Plavix, beta blockers, Lipitor, and will add an LOLA inhibitor to his toby men. Juancarlos Corey MD cc: [phone] TT: 09/20/2016 08:53:45 Confirmation # [id number] Dictation # [id number] mn
--- NOTE | 2016-09-20 09:09 | PN ---
DATE: 09/20/2016 I saw the patient resting in bed. He slept fairly well. He is in good spirits. He is smiling, he is happy. He is eating. He wants more food. No chest pain, no shortness of breath, no abdominal pain, but he is weak overall. He thought he might need some physical therapy. I will get PT in to see if he is TCU or subacute or home with services. I will get their opinion. PHYSICAL EXAMINATION: VITAL SIGNS: Temp 97.9, 72 pulse, 120/70 blood pressure, 20 respiratory rate, 96% O2 sat on nasal cannula. HEAD: Atraumatic, normocephalic. THROAT: Moist. NECK: Supple. HEART: Regular rate. LUNGS: Decreased breath sounds, but clear. ABDOMEN: Soft. EXTREMITIES: He has a right BKA, but the left leg has no edema. He is currently on Amaryl, Celexa, Desyrel, Ecotrin, Glucophage, insulin, Levemir, Lipitor, Lopressor, Neurontin, nitroglycerin,, phenobarbital, Plavix, Protonix, Rocephin, and Zithromax. He had good blood tests I believe. His white count is better at 6.2, hemoglobin 12.6, hematocrit 36.5, platelets of 159. Sodium 140, potassium 4, BUN is 14, creatinine is 0.9, GFR is greater than 60. Random sugar was 70, it was 380, it was 188 and it was 267. Maybe the medicine is starting to kick in. His calcium is 8.9, total bilirubin is 0.6, AST is 59, ALT is 41, alk phos 76 , total protein 6.9. I called in physical therapy to give us an evaluation, if it is TCU, subacute rehab or home with services. He tells me he is weaker. He does have a below knee amputation and he walks with a prosthesis, but it has been about a week that he has not done that. I think he needs some physical therapy before he goes home. Also, he had a non-ST elevation myocardial infarction, diabetes. He had a stent placed. He had low potassium. He was a very noncompliant diabetic with very high blood sugars and an infiltrate, so maybe it wore him out a little bit. We will see what physical therapy offers and we will continue treatment and care. Hopefully, we possibly can discharge him later today, if it is okay with cardiology, to a rehab or TCU. Keith Montes DO cc: [phone] TT: 09/20/2016 09:09:39 Confirmation # [id number] Dictation # [id number] en MTDD
[2016-09-20] MEDS: cefTRIAXone 1 gm 1 GM/100 ML BAG IVPB SCH (09:22)
[2016-09-20 11:50] VITALS: RESP 18; TEMP 98.6
--- NOTE | 2016-09-20 12:31 | PN ---
DATE: 09/20/2016 ROOM: 272 This is a 71-year-old male with recent uncontrolled type 2 insulin-requiring diabetes, now being foll owed closely for metabolic management. His glycemic levels are fluctuating, but much improved at this time, and the latest glucose levels ofx ve ranged from 82-192 mg/dL. It was 380 at bedtime last night as noted. His latest chemistries incl ude a BUN of 14, sodium 140, potassium 4.0, chloride 101, CO2 32, glucose 70 and creatinine 0.9. So at this time, we will modify once again his basal insulin and lower the dose of Levemir to 10 unit s subQ at bedtime daily to start tonight as ordered. We will also continue the Amaryl given as 4 mg p.o. b.i.d. before meals as ordered. They still have held off on the metformin medication as noted. We will continue only the low-dose correction scale using Humalog insulin as ordered. We will obtai n serial chemistries and supplement accordingly as needed. We will follow. Lottie Dash MD cc: [id number] TT: 09/20/2016 12:30:05 Confirmation # [id number] Dictation # [id number] en
[2016-09-20 16:39] LABS: HEMATOCRIT 33.5 % (42.0-52.0); MEAN CELL VOLUME 90.8 fL (80.0-105.0); MEAN CORPUSCULAR HEMOGLOBIN 31.7 pg (25.0-35.0); MEAN CORPUSCULAR HGB CONC 34.9 g/dl (31.0-37.0); MEAN PLATELET VOLUME 10.1 fl (7.0-11.0); RED CELL DISTRIBUTION WIDTH 12.7 % (11.5-14.5); WHITE BLOOD COUNT 8.9 10^3/ul (4.5-11.0)
[2016-09-20 17:11] LABS: ALB/GLOB RATIO 1.1 (1.1-1.8); ALKALINE PHOSPHATASE 83 U/L (38-133); ALT/SGPT 50 U/L (7-56); AST/SGOT 81 U/L (15-59); BILIRUBIN,TOTAL 0.6 mg/dL (0.2-1.3); BLOOD UREA NITROGEN 16 mg/dL (7-21); CALCIUM 8.6 mg/dL (8.4-10.5); CARBON DIOXIDE 30 mmol/L (21-33); CHLORIDE 98 mmol/L (95-110); GFR AFRICAN-AMERICAN > 60; GLUCOSE,RANDOM 244 mg/dL (70-110); MAGNESIUM 2.1 mg/dL (1.7-2.2); PHOSPHOROUS 2.4 mg/dL (2.5-4.5); POTASSIUM 4.8 mmol/L (3.6-5.0); SODIUM 131 mmol/L (132-148); TOTAL PROTEIN 6.6 g/dL (5.8-8.3)
[2016-09-20 17:20] VITALS: BP 127/89
[2016-09-20 19:00] VITALS: PULSE 89
[2016-09-20] MEDS ORDERED: Insulin Detemir 100 units/ml Vial (Levemir) SC SCH (22:00)
--- NOTE | 2016-09-20 23:17 | CARD ---
APPROVED REPORT EKG Measurement Heart [id number] [place] 166P51 [id number] <Conclusion> Normal sinus rhythm Left axis deviation Septal infarct, age undetermined T wave abnormality, consider lateral ischemia Abnormal ECG
--- NOTE | 2016-10-04 11:41 | DS ---
He was doing fairly well in the hospital side. We are trying to get him to the TCU before he goes ho me. He is comfortable. He is doing better. He still needs some physical therapy. He had a non-ST elevation myocardial infarction, stent was placed. He had low potassium. He is very noncompliant wi th his diabetes meds and he had pneumonia. He needs to have further IV antibiotics and treatment and care, physical therapy before he goes home. He was discharged to TCU. He also has a right below kn ee amputation, so the physical therapy would help him. Keith Montes DO cc: [phone] TT: 10/04/2016 11:41:00 en
== END 2016-09-20 21:30 | DRG 246 ==
LOC: ED 00:21 → ERH 04:19 → CCU 11:34 → 2RSO 09-19 20:35
PROVIDERS: ADMIT Family Medicine; ATTEND Family Medicine
PROC: 027034Z Dilation of Coronary Artery, One Artery with Drug-eluting Intraluminal Device, Percutaneous Approach (ICD-10-PCS; principal; 2016-09-18)
PROC: 4A023N7 Measurement of Cardiac Sampling and Pressure, Left Heart, Percutaneous Approach (ICD-10-PCS; 2016-09-18)
PROC: B2111ZZ Fluoroscopy of Multiple Coronary Arteries using Low Osmolar Contrast (ICD-10-PCS; 2016-09-18)
PROC: B2151ZZ Fluoroscopy of Left Heart using Low Osmolar Contrast (ICD-10-PCS; 2016-09-18)
DX: I21.4 Non-ST elevation (NSTEMI) myocardial infarction (principal); E11.00 Type 2 diabetes mellitus with hyperosmolarity without nonketotic hyperglycemic-hyperosmolar coma (NKHHC); G92 Toxic encephalopathy; J18.9 Pneumonia, unspecified organism; I11.0 Hypertensive heart disease with heart failure; E13.10 Other specified diabetes mellitus with ketoacidosis without coma; D68.9 Coagulation defect, unspecified; E11.42 Type 2 diabetes mellitus with diabetic polyneuropathy; I42.0 Dilated cardiomyopathy; I50.9 Heart failure, unspecified; E87.1 Hypo-osmolality and hyponatremia; J44.0 Chronic obstructive pulmonary disease with (acute) lower respiratory infection; T82.855A Stenosis of coronary artery stent, initial encounter; W19.XXXA Unspecified fall, initial encounter; E86.0 Dehydration; E78.00 Pure hypercholesterolemia, unspecified; I25.110 Atherosclerotic heart disease of native coronary artery with unstable angina pectoris; E78.5 Hyperlipidemia, unspecified; E87.6 Hypokalemia; G40.909 Epilepsy, unspecified, not intractable, without status epilepticus; I25.5 Ischemic cardiomyopathy; I25.82 Chronic total occlusion of coronary artery; I44.7 Left bundle-branch block, unspecified; S40.811A Abrasion of right upper arm, initial encounter; Y83.1 Surgical operation with implant of artificial internal device as the cause of abnormal reaction of the patient, or of later complication, without mention of misadventure at the time of the procedure; Z79.01 Long term (current) use of anticoagulants; Z79.02 Long term (current) use of antithrombotics/antiplatelets; Z79.4 Long term (current) use of insulin; Z79.82 Long term (current) use of aspirin; Z79.899 Other long term (current) drug therapy; Z82.49 Family history of ischemic heart disease and other diseases of the circulatory system; Z83.3 Family history of diabetes mellitus; Z89.511 Acquired absence of right leg below knee; S40.022A Contusion of left upper arm, initial encounter; S60.222A Contusion of left hand, initial encounter; S60.221A Contusion of right hand, initial encounter; S41.112A Laceration without foreign body of left upper arm, initial encounter; S61.412A Laceration without foreign body of left hand, initial encounter; S61.411A Laceration without foreign body of right hand, initial encounter; Z95.5 Presence of coronary angioplasty implant and graft; Z86.73 Personal history of transient ischemic attack (TIA), and cerebral infarction without residual deficits; R40.2412 Glasgow coma scale score 13-15, at arrival to emergency department; Z91.19 Patient's noncompliance with other medical treatment and regimen

== ENCOUNTER 2016-09-20 21:30 | Inpatient (IN) | payer OTHER, MEDICAID ==
[2016-09-20 22:44] VITALS: BMI 20.3
[2016-09-20] MEDS ORDERED: Pneumococcal 23-Valent Vaccine IM ONE (22:44)
[2016-09-21] MEDS: Insulin Detemir 100 units/ml Vial (Levemir) SC SCH ×2 (01:01→21:29)
[2016-09-21] MEDS: Insulin Reg-LOW-Coverage SC SCH ×5 (01:02→21:30)
[2016-09-21] MEDS ORDERED: Alum-Mag Hydrox-Simethicone Susp (30 mL) PO STA (01:10)
--- NOTE | 2016-09-21 01:28 | CP.PCM.PN ---
Subjective - Date & Time of Evaluation Date of Evaluation: 09/21/16 Time of Evaluation: 01:10 - Subjective Subjective: BP108/80, Temp: 98.1*F, RR 20/min. HR 91/ min. Pulse ox not obtained. (PVD). pulse 91 / min. Patient was seen because he requested for mylanta for heart burn. Denies any chest pain, sob, nausea , sweating , palpitation. Had recently stent placed in circumflex. Troponin is 0.49 down from 0.99. EF 25% . This 71 year old white male was admitted chest pain ,weakness, NSTEMI. Has PMH of DM II , HTN,NSTEMI, CAD with stent placement x 7, seizure, peripheral neuropathy, subarachnoid hemorrhage, dyslipidemia , CHF, cataract . Objective - Vital Signs/Intake and Output Vital Signs (last 24 hours): Temp Pulse Resp BP Pulse Ox 98.4 F 74 18 109/63 09/20/16 22:34 09/20/16 22:34 09/20/16 22:34 09/20/16 22:34 - Medications Medications: Current Medications Aspirin (Ecotrin) 325 mg PO 0800 [facility] Atorvastatin Calcium (Lipitor) 80 mg PO DIN [facility] Carvedilol (Coreg) 3.125 mg PO BID [facility] Clopidogrel Bisulfate (Plavix) 75 mg PO 0800 [facility] Glimepiride (Amaryl) 2 mg PO BRKDIN [facility] Azithromycin (Zithromax 500mg In Ns) 500 mg in 250 mls @ 167 mls/hr IVPB 0600 [facility] Ceftriaxone Sodium (Rocephin 1 Gram Ivpb) 1 gm in 100 mls @ 100 mls/hr IVPB 0600 [facility] Insulin Detemir (Levemir) 12 unit SC HS [facility] Last Admin: 09/21/16 01:01 Dose: 12 unit Insulin Human Regular (Humulin R Low) 0 units SC ACHS [facility] Last Admin: 09/21/16 01:02 Dose: 3 units Metformin HCl (Glucophage) 500 mg PO BID [facility] Metoprolol Tartrate (Lopressor) 25 mg PO BRKDIN [facility] Nitroglycerin (Nitrostat Sl Tab) 0.4 mg SL PRN PRN PRN Reason: chest pain Pentoxifylline (Pentoxil) 400 mg PO TID [facility] Phenobarbital (Phenobarbital Tab) 64.8 mg PO BID [facility] Trazodone HCl (Desyrel) 50 mg PO HS [facility] - Constitutional Appears: Well, No Acute Distress - Head Exam Head Exam: ATRAUMATIC, NORMAL INSPECTION, NORMOCEPHALIC - Eye Exam Eye Exam: Normal appearance - ENT Exam ENT Exam: Normal External Ear Exam - Neck Exam Neck Exam: Normal Inspection - Respiratory Exam Respiratory Exam: NORMAL BREATHING PATTERN - Cardiovascular Exam Cardiovascular Exam: absent: JVD - GI/Abdominal Exam GI & Abdominal Exam: absent: Distended - Rectal Exam Rectal Exam: Deferred - Extremities Exam Extremities Exam: Normal Inspection - Back Exam Back Exam: NORMAL INSPECTION - Neurological Exam Neurological Exam: Alert, Oriented x3 - Psychiatric Exam Psychiatric exam: Normal Affect, Normal Mood - Skin Skin Exam: Normal Color Assessment and Plan - Assessment and Plan (Free Text) Assessment: A/P:Heart burn. HTN. DM II. CAD. NSTEMI-recent. S/P coronary stent placement -recent. EKG------------>NSR, LAD, LBBB. Changes similar to EKG of 09/19/16 but more pronounced VS. New changes? Troponin- not ordered. Trending down. Continue present treatment.
[2016-09-21] MEDS: cefTRIAXone 1 gm in NS 100ml IVPB SCH (06:00)
[2016-09-21] MEDS: Azithromycin 500MG/NS 250ml 500 MG/250 ML BAG IVPB SCH (06:01)
[2016-09-21] MEDS: Aspirin 325 mg EC Tablets PO SCH (08:53)
[2016-09-21 09:07] LABS: HEMATOCRIT 34.7 % (42.0-52.0); MEAN CELL VOLUME 90.8 fL (80.0-105.0); MEAN CORPUSCULAR HEMOGLOBIN 31.7 pg (25.0-35.0); MEAN CORPUSCULAR HGB CONC 34.9 g/dl (31.0-37.0); MEAN PLATELET VOLUME 10.3 fl (7.0-11.0); RED CELL DISTRIBUTION WIDTH 12.9 % (11.5-14.5); WHITE BLOOD COUNT 6.5 10^3/ul (4.5-11.0)
[2016-09-21 09:14] LABS: ALB/GLOB RATIO 1.1 (1.1-1.8); ALKALINE PHOSPHATASE 90 U/L (38-133); ALT/SGPT 56 U/L (7-56); AST/SGOT 61 U/L (15-59); BILIRUBIN,TOTAL 0.4 mg/dL (0.2-1.3); BLOOD UREA NITROGEN 23 mg/dL (7-21); CALCIUM 9.3 mg/dL (8.4-10.5); CARBON DIOXIDE 30 mmol/L (21-33); CHLORIDE 102 mmol/L (98-107); GFR AFRICAN-AMERICAN > 60; GLUCOSE,RANDOM 152 mg/dL (70-110); POTASSIUM 5.1 mmol/L (3.6-5.0); SODIUM 140 mmol/L (132-148)
--- NOTE | 2016-09-21 12:24 | PN ---
DATE: 09/21/2016 ROOM: 327 SUBJECTIVE: This is a 71-year-old male with recent uncontrolled type 2 insulin-requiring diabetes no w being followed closely for metabolic management. He was transferred now to TCU for ongoing physica l therapy as noted. His glycemic levels are fluctuating, but improved, and the latest chemistries sh owed a BUN of 23, sodium 140, potassium 5.1, chloride 102, CO2 30, glucose 152 and creatinine 1.0. S o, at this time, we will continue the same basal insulin to allow for dose equilibration and keep him on the Levemir at 12 units subQ at bedtime daily as ordered. We will continue also the oral hypogly cemic therapy with metformin given as 500 mg t.i.d. and Amaryl given as 2 mg b.i.d. before meals as o rdered. We will continue the low-dose correction scale using regular insulin as ordered. We will ti trate incrementally as indicated to optimize metabolic control. We will follow. Lottie Dash MD cc: [id number] TT: 09/21/2016 12:23:59 Confirmation # [id number] Dictation # [id number] tn
--- NOTE | 2016-09-21 16:20 | CARD ---
APPROVED REPORT EKG Measurement Heart [id number] AR [id number] [id number] <Conclusion> Normal sinus rhythm Left axis deviation Left bundle branch block Abnormal ECG
[2016-09-21] MEDS: Alum-Mag Hydrox-Simethicone Susp (30 mL) PO PRN (17:04)
--- NOTE | 2016-09-21 19:37 | HP ---
I saw the patient who has now been transferred to the transitional care unit from the hospital side. He is resting comfortable in bed, asking for Mylanta; he gets some indigestion from time to time. He had a rough go on the hospital side. He had high blood sugars, infiltrate, chest pain, NSTEMI. He had cardiac cath and was stented, diabetes, unstable angina, has GERD, history of right below-knee amputation and a low potassium. This is a 71-year-old male who was having chest pain and weakness with fall, who is confused, comes into the hospital and ends up having NSTEMI and cardiac catheterization and stent, and now also with pneumonia and is on IV antibiotics and is in the transitional care unit for IV antibiotics and physical therapy. PAST MEDICAL HISTORY: Diabetes, hypertension, high cholesterol, small subdural hematoma, coronary artery disease with now 8 stents, history of falls, seizures , congestive heart failure, cataracts, diabetes mellitus, multiple lacerations, bruising on the left arm and hands, also bruises on to the right temporal forehead where he fell. He has been depressed. FAMILY HISTORY: He has got hypertension and diabetes in the family. SOCIAL HISTORY: Never smoked, no alcohol, no drugs. ALLERGIES: No known drug allergies. MEDICATIONS: He is taking multiple medications now. Amaryl, Coreg, Desyrel, Ecotrin, Glucophage, insulin, Levemir, Lipitor, Lopressor, MiraLax, Nitrostat, phenobarbital, Plavix, Rocephin IV and azithromycin IV. REVIEW OF SYSTEMS: He is presently doing better than when he was in 4 days ago. He is sitting in bed, asking for food and medicines. No acute vision changes, no hearing changes. He is forgetful. No shortness of breath or cough at this time. No chest pain at this time. No abdominal pain, nausea, vomiting , but indigestion. He is asking for Mylanta. No headache, no dizziness or extremity pains. PHYSICAL EXAMINATION: VITAL SIGNS: 98.4 temp, 74 pulse, 109/62 blood pressure, 18 respiratory rate. HEENT: His head is mildly traumatic with some bruises, but are healing. He is alert and oriented x 2. Well appearing, comfortable. Extraocular muscles are intact. HEART: Regular rate. Normal S1, S2. LUNGS: Decreased breath sounds but clear to auscultation. ABDOMEN: Soft, nontender, positive bowel sounds. EXTREMITIES: Right BKA. Left leg: No edema. NEUROLOGIC: Cranial nerves II-XII grossly intact. Speech is normal. GCS is 15. SKIN: Warm and dry. Healing ecchymoses from the fall. Thyroid midline. No appreciable palpable lymphadenopathy. LABORATORY DATA: He has had 6.5 white count, 12.1 hemoglobin, 34.7 hematocrit, platelets. Sodium 140, potassium 5.1, BUN 23, creatinine is 1. GFR is greater than 60, sugar is 152, calcium is 9.3, total bili is 0.4, AST is 61, ALT is 66, alkaline phosphatase 90, total protein 7, albumin is 3.7, globulin 3.3. PLAN: He is already being seen by the [employer], continue to watch his blood sugar, monitor his medications, eat a healthy diet. Hopefully, he will do very well and he will be here for physical therapy and IV antibiotics and cardiac eval. Keith Montes DO cc: [id number] TT: 09/21/2016 19:36:43 nicolas MONROY
[2016-09-22] MEDS: cefTRIAXone 1 gm in NS 100ml IVPB SCH (05:10)
[2016-09-22] MEDS: Azithromycin 500MG/NS 250ml 500 MG/250 ML BAG IVPB SCH (05:10)
[2016-09-22] MEDS: Insulin Reg-LOW-Coverage SC SCH ×4 (07:42→22:14)
[2016-09-22 08:18] LABS: HEMATOCRIT 32.8 % (42.0-52.0); MEAN CELL VOLUME 89.9 fL (80.0-105.0); MEAN CORPUSCULAR HEMOGLOBIN 31.2 pg (25.0-35.0); MEAN CORPUSCULAR HGB CONC 34.8 g/dl (31.0-37.0); MEAN PLATELET VOLUME 10.4 fl (7.0-11.0); RED CELL DISTRIBUTION WIDTH 12.8 % (11.5-14.5); WHITE BLOOD COUNT 6.8 10^3/ul (4.5-11.0)
[2016-09-22 08:30] LABS: ALB/GLOB RATIO 1.1 (1.1-1.8); ALKALINE PHOSPHATASE 90 U/L (38-133); ALT/SGPT 57 U/L (7-56); AST/SGOT 44 U/L (15-59); BILIRUBIN,TOTAL 0.3 mg/dL (0.2-1.3); BLOOD UREA NITROGEN 27 mg/dL (7-21); CALCIUM 8.9 mg/dL (8.4-10.5); CARBON DIOXIDE 26 mmol/L (21-33); CHLORIDE 102 mmol/L (98-107); GFR AFRICAN-AMERICAN > 60; GLUCOSE,RANDOM 120 mg/dL (70-110); POTASSIUM 4.2 mmol/L (3.6-5.0); SODIUM 136 mmol/L (132-148); TOTAL PROTEIN 7.2 g/dL (5.8-8.3)
[2016-09-22] MEDS: Aspirin 325 mg EC Tablets PO SCH (09:00)
--- NOTE | 2016-09-22 12:13 | PN ---
DATE: 09/22/2016 He had some problems this morning with the IV and it is bothering him. There is some inflammation, s o they took out the IV and he had some infiltration. He needs to have another IV put in. He does no t want to do it now. He wants to wait until later. He only got half the Zithromax IV. I will amin e that to p.o. 500 daily and we will continue with the Rocephin. He got that one already this katienin g. Hopefully, by tomorrow, he will have another IV in to continue the Rocephin. He is being seen by cardiology, pulmonology, endocrinology, neurology. He is on Amaryl, Coreg, Desyrel, Ecotrin, Glucophage, Levemir, Lipitor, Lopressor, Maalox, Neurontin, Nitrostat, Pentoxil, phenobarbital, Plavix, Rocephin and Zithromax. PHYSICAL EXAMINATION: VITAL SIGNS: Temp 98.4, 74 pulse, 109/63 blood pressure. HEENT: His head is atraumatic, normocephalic. HEART: Regular rate. LUNGS: Clear to auscultation with decreased breath sounds. ABDOMEN: Soft, nontender. EXTREMITIES: He has got a right BKA. Left leg, no edema. He is here for high blood sugars, infiltrates, chest pain, non-ST elevation myocardial infarction, di abetes, unstable angina, right below knee amputation which is old and a low potassium. LABORATORY DATA: Today, he has got a 6.8 white count, 11.4 hemoglobin, 32.8 hematocrit, 202 platelet s. Sodium 136, potassium is 4.2, BUN 27, creatinine 0.9, GFR is greater than 60, sugar is 120, calci um is 8.9, total bili is 0.3, AST is 44, ALT is 57, alk phos 90, total protein 7.2, albumin is 3.9 an d globulin 3.4. We will continue with aggressive treatment and care. Check his labs tomorrow. Adjustment in IV medi cations. The patient is in the TCU for physical therapy also. Keith Montes DO cc: [id number] TT: 09/22/2016 12:12:45 Confirmation # [id number] Dictation # [id number] en
[2016-09-22] MEDS: Alum-Mag Hydrox-Simethicone Susp (30 mL) PO PRN (12:20)
--- NOTE | 2016-09-22 13:48 | PN ---
DATE: 09/22/2016 ROOM: 327 This is a 71-year-old male with recent uncontrolled type 2 insulin-requiring diabetes, now being foll owed closely for metabolic management. His glycemic levels are fluctuating, but much improved at this time and the latest chemistry showed a BUN of 27, sodium 136, potassium 4.2, chloride 102, CO2 26, glucose 120 and creatinine 0.9. His glu cose values have ranged from 114-233 mg/dL today as noted. So at this time, we will continue the same basal and bolus insulin regimen to allow for dose equilibr ation and keep him on the Levemir given as 12 units subQ at bedtime daily as given. We will continue the metformin given as 500 mg b.i.d. and Amaryl given as 2 mg b.i.d. before meals. We will titrate incrementally as indicated to optimize metabolic control. We will obtain serial chemistries and supp lement accordingly as needed. We will also continue the low-dose correction scale using regular insu kendrick as given. We will titrate incrementally as indicated. We will follow. Lottie Dash MD cc: [phone] TT: 09/22/2016 13:47:57 Confirmation # [id number] Dictation # [id number] en
--- NOTE | 2016-09-22 13:53 | CON ---
DATE: 09/22/2016 NEUROLOGY CONSULT CHIEF COMPLAINT: Follow up for deconditioning, history of seizures, and diabetic peripheral neuropat hy. SUBJECTIVE: The patient is seen and examined at bedside. He is undergoing physical therapy. He rec ently recovered from DKA in the ICU on the medical side of the floor, and had a change in mental stat us, which was secondary to underlying toxic metabolic encephalopathy at that time from DKA, and his b lood sugars are being adjusted and maintained. He is currently on his phenobarbital 64.8 p.o. b.i.d. for his underlying seizures. No further seizures since he is hospital. No acute events overnight. PAST MEDICAL HISTORY: Diabetes, diabetic peripheral neuropathy, seizure disorder, history of subarac hnoid hemorrhage in 06/2016, history of dyslipidemia. REVIEW OF SYSTEMS: A 14-point review of systems is negative except for the HPI. FAMILY HISTORY: Noncontributory. ALLERGIES: No known drug allergies. MEDICATIONS: Reviewed by nurse's reconciliation sheet. SOCIAL HISTORY: No illicit drug use, smoking, or EtOH abuse at this time. PHYSICAL EXAMINATION: VITAL SIGNS: Temperature afebrile, pulse rate 71, blood pressure 122/68, respiratory rate of 17. GENERAL: The patient is sitting up in bed in no acute distress. HEENT: Atraumatic, normocephalic. PERRLA. Extraocular muscles intact. NECK: Supple. No JVD, no adenopathy noted. LUNGS: Clear to auscultation. No adventitious sounds. HEART: S1, S2, normal rate and rhythm. No murmurs, rubs, or gallops. ABDOMEN: Soft, nontender, nondistended. Bowel sounds are present. EXTREMITIES: No clubbing, no cyanosis. Peripheral pulses are 2+ felt bilaterally. NEUROLOGIC: The patient is alert, oriented to person, place and knows the President of the [employer]. Recall after 5 minutes is 0/3. Poor attention span. Slow thought process. 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 Cranial nerves II-XII are intact. MOTOR: Moves all extremities equally except for a right BKA. SENSORY: Decreased light touch with calves bilaterally, decreased vibration of the knees and elbows. DEEP TENDON REFLEXES: 1+ throughout. COORDINATION: [id number] intact. GAIT: Deferred for now. LABORATORIES: Sodium is 136, potassium 4.2, chloride 102, carbon dioxide 26, BUN of 27, creatinine o f 0.9, random glucose of 120. His A1c was 15.4. ASSESSMENT AND PLAN: This is a 71-year-old man with past medical history of uncontrolled diabetes, d iabetic peripheral neuropathy, history of seizure disorder on phenobarbital, history of cognitive imp airment, history of subarachnoid hemorrhage in 06/2016 ____ on the medical side of the floor for diabe tic ketoacidosis and had change in mental status more of toxic metabolic at that time, and is current ly in [facility] for rehabilitation and physical therapy for deconditioned state. He does have underlying diabetic peripheral neuropathy for poorly controlled diabetes, given that his A1c is 15.4. At this time, recommend: 1. Monitor his blood sugar. Keep it between 140-180. Diabetic education needs to be given. His A1 c of 15.4 indicating poorly controlled diabetes needs medication adjustment. 2. Avoid nighttime interruptions, and any sedation medications. 3. Monitor his electrolytes and correct accordingly. 4. Continue his phenobarbital 64.8 p.o. b.i.d. for underlying seizure prophylaxis. 5. Continue with aspirin, statin, Plavix, and Lipitor for stroke prevention. 6. Continue with underlying physical and occupational therapy. Thank you for this followup. Geoff Ayers MD cc: [id number] TT: 09/22/2016 13:52:38 Confirmation # [id number] Dictation # [id number] james
[2016-09-22] MEDS: Insulin Detemir 100 units/ml Vial (Levemir) SC SCH (22:07)
[2016-09-23] MEDS: cefTRIAXone 1 gm in NS 100ml IVPB SCH (05:11)
[2016-09-23 07:01] LABS: HEMATOCRIT 30.7 % (42.0-52.0); MEAN CELL VOLUME 90.6 fL (80.0-105.0); MEAN CORPUSCULAR HEMOGLOBIN 31.3 pg (25.0-35.0); MEAN CORPUSCULAR HGB CONC 34.5 g/dl (31.0-37.0); MEAN PLATELET VOLUME 10.4 fl (7.0-11.0); RED CELL DISTRIBUTION WIDTH 12.9 % (11.5-14.5); WHITE BLOOD COUNT 6.5 10^3/ul (4.5-11.0)
[2016-09-23 07:18] LABS: ALB/GLOB RATIO 1.1 (1.1-1.8); ALKALINE PHOSPHATASE 84 U/L (38-133); ALT/SGPT 55 U/L (7-56); AST/SGOT 47 U/L (15-59); BILIRUBIN,TOTAL 0.3 mg/dL (0.2-1.3); BLOOD UREA NITROGEN 26 mg/dL (7-21); CARBON DIOXIDE 30 mmol/L (21-33); CHLORIDE 104 mmol/L (98-107); GFR AFRICAN-AMERICAN > 60; GLUCOSE,RANDOM 82 mg/dL (70-110); POTASSIUM 4.5 mmol/L (3.6-5.0); SODIUM 141 mmol/L (132-148); TOTAL PROTEIN 6.6 g/dL (5.8-8.3)
[2016-09-23] MEDS: Insulin Reg-LOW-Coverage SC SCH ×4 (07:23→22:33)
[2016-09-23] MEDS: Alum-Mag Hydrox-Simethicone Susp (30 mL) PO PRN ×2 (07:39→16:24)
[2016-09-23] MEDS: Aspirin 325 mg EC Tablets PO SCH (07:41)
--- NOTE | 2016-09-23 07:45 | PN ---
DATE: 09/23/2016 SUBJECTIVE: The patient appears comfortable this morning. He is not short of breath at rest. PHYSICAL EXAMINATION: VITAL SIGNS: Temperature is 98.4, pulse 74, respirations 18, blood pressure 123 /70. Oxygen saturation on nasal cannula is 96%. HEENT: Normocephalic, atraumatic. No JVD. CARDIOVASCULAR: Positive S1, S2. No S3. LUNGS: Minimal crackles at the bases. No rhonchi. No wheezing. EXTREMITIES: The patient is status post right BKA. The left lower extremity shows no clubbing, cyanosis, or edema. The left calf is nontender to palpation. GASTROINTESTINAL: Abdomen is soft, nontender, nondistended. Bowel sounds are positive. SKIN: No acute rash. NEUROLOGIC: Limited at the present time. IMPRESSION: 1. Acute myocardial infarction. 2. Extensive coronary artery disease, status post multiple stents. 3. Right lower lobe pneumonia. 4. Uncontrolled diabetes mellitus. 5. Electrolyte abnormalities. PLAN: The patient appears very comfortable this morning. He is not short of breath at rest. He states he is feeling much, much better overall. On physical exam, there is no significant bronchospasm noted. In addition, there is no significant alveolar-arterial gradient. I would continue with the current antibiotic therapy for now. I would continue the cardiology evaluation. Input by Dr. Corey is noted. Clinical status of the patient is significantly improved -- compared to the initial presentation. However, the overall status/prognosis of this patient does remain guarded. I will discuss the above with Dr. Montes. Vasquez Malik MD cc: [phone] TT: 09/23/2016 07:44:25 Confirmation # [id number] Dictation # [id number] en MTDD
--- NOTE | 2016-09-23 09:01 | PN ---
DATE: 09/23/2016 I saw him this morning in the transitional care unit. He is doing much better today. He is in good spirits. He slept fairly well. He has prosthesis on for physical therapy. He is breathing better. Overall, improving. PHYSICAL EXAMINATION: VITAL SIGNS: 98.4 temp, 70 pulse, 123/70 blood pressure. GENERAL: He is sitting out of bed, breathing well, happy, good spirits. HEENT: His head is atraumatic, normocephalic. HEART: Regular rate. LUNGS: Decreased breath sounds but clear to auscultation. ABDOMEN: Soft, nontender, positive bowel sounds. EXTREMITIES: He has a right BKA with the prosthesis on. No edema. MEDICATIONS: He is currently on Amaryl, Coreg, Desyrel, Ecotrin, Glucophage, insulin coverage, Levem ir, Lipitor, Lopressor, Maalox, Neurontin, Nitrostat, Pentoxil, phenobarbital, Plavix, Rocephin and Z ithromax. LABORATORY DATA: Sodium 141, potassium 4.5, BUN 26, creatinine 0.9, GFR is greater than 60, sugar is 82, calcium is 9. Total bili is 0.3, AST is 47, ALT is 55, alkaline phosphatase 84, total protein 6 .6, albumin is 3.5. White count 6.5, hemoglobin 10.6, hematocrit 30.7, platelets of 211. He is being seen by pulmonology, endocrinology and neurology. Will continue with aggressive treatmen t and care. Check his labs tomorrow. IV antibiotics, fluids, PT and eventually he will be able to b e discharged. Definitely improving since when he came in to the hospital, and he is in good spirits. Discussed with the nurse. Will check his labs tomorrow. Keith Montes DO cc: [id number] TT: 09/23/2016 09:00:25 Confirmation # [id number] Dictation # [id number] mn
--- NOTE | 2016-09-23 17:29 | PN ---
DATE: 09/23/2016 LOCATION: Room 327 SUBJECTIVE: This is a 71-year-old male with recent uncontrolled type 2 insulin-requiring diabetes, n ow being followed closely for metabolic management. LABORATORY DATA: His glycemic levels are fluctuating, but much improved at this time, and the latest glucose levels have ranged from 138 to 170 and 186 mg/dL. His latest chemistry showed a BUN of 26, sodium 141, potassium 4.5, chloride 104, CO2 30, glucose 82, and creatinine 0.9. ASSESSMENT AND PLAN: So, at this time, will modify and lower his basal insulin to a dose of Levemir at 8 units subcutaneous at bedtime daily as given. Will continue the low-dose correction scale using Humalog insulin. Will also continue the dual oral hypoglycemic therapy with Amaryl given as 2 mg b. i.d. before meals and metformin given as 500 mg b.i.d. after meals as ordered. Will titrate incremen tally as indicated to optimize metabolic control. Will follow. Lottie Dash MD cc: [id number] TT: 09/23/2016 17:29:25 Confirmation # [id number] Dictation # [id number] gilbert
[2016-09-23] MEDS ORDERED: Insulin Detemir 100 units/ml Vial (Levemir) SC SCH (22:00)
[2016-09-24] MEDS: cefTRIAXone 1 gm in NS 100ml IVPB SCH (05:22)
[2016-09-24] MEDS: Insulin Reg-LOW-Coverage SC SCH ×4 (06:49→21:33)
[2016-09-24 07:57] LABS: HEMATOCRIT 32.1 % (42.0-52.0); MEAN CELL VOLUME 90.7 fL (80.0-105.0); MEAN CORPUSCULAR HEMOGLOBIN 31.1 pg (25.0-35.0); MEAN CORPUSCULAR HGB CONC 34.3 g/dl (31.0-37.0); RED CELL DISTRIBUTION WIDTH 12.9 % (11.5-14.5); WHITE BLOOD COUNT 6.8 10^3/ul (4.5-11.0)
--- NOTE | 2016-09-24 08:06 | PN ---
DATE: 09/24/2016 SUBJECTIVE: The patient appears very comfortable this morning. He is not short of breath at rest. PHYSICAL EXAMINATION: VITAL SIGNS: Temperature is 98.6, pulse 63, respirations 18, blood pressure 109 /62. Oxygen saturation on nasal cannula is 99%. HEENT: Normocephalic, atraumatic. No JVD. CARDIOVASCULAR: Positive S1, S2. No S3. LUNGS: Less crackles at the bases. No rhonchi. No wheezing. EXTREMITIES: The patient is status post right BKA. The left lower extremity shows no clubbing, cyanosis, or edema. The left calf is nontender to palpation. GASTROINTESTINAL: Abdomen is soft, nontender, nondistended. Bowel sounds are positive. SKIN: No acute rash. NEUROLOGIC: Limited at the present time. IMPRESSION: 1. Acute myocardial infarction. 2. Extensive coronary artery disease, status post multiple stents. 3. Right lower lobe pneumonia. 4. Uncontrolled diabetes mellitus. 5. Electrolyte abnormalities. PLAN: The patient appears very comfortable this morning. He is not short of breath at rest. He states he is feeling much better overall. On physical exam , there is no significant bronchospasm noted. In addition, there is no significant alveolar-arterial gradient. The patient remains on antibiotic therapy. There are no recent temperatures noted. There is no leukocytosis. I would continue with the cardiology evaluation and treatment. Clinical status of the patient is significantly improved -- compared to the initial presentation. However, again, the overall status/prognosis for this patient remains very guarded. I will discuss the above with Dr. Montes. Vasquez Malik MD cc: [phone] TT: 09/24/2016 08:06:04 Confirmation # [id number] Dictation # [id number] en MTDD
[2016-09-24 08:12] LABS: ALB/GLOB RATIO 1.2 (1.1-1.8); ALKALINE PHOSPHATASE 89 U/L (38-133); ALT/SGPT 59 U/L (7-56); AST/SGOT 47 U/L (15-59); BILIRUBIN,TOTAL 0.3 mg/dL (0.2-1.3); BLOOD UREA NITROGEN 21 mg/dL (7-21); CALCIUM 9.4 mg/dL (8.4-10.5); CARBON DIOXIDE 31 mmol/L (21-33); CHLORIDE 105 mmol/L (95-110); GFR AFRICAN-AMERICAN > 60; GLUCOSE,RANDOM 62 mg/dL (70-110); POTASSIUM 5.3 mmol/L (3.6-5.0); SODIUM 141 mmol/L (132-148); TOTAL PROTEIN 7.1 g/dL (5.8-8.3)
[2016-09-24] MEDS: Aspirin 325 mg EC Tablets PO SCH (08:57)
--- NOTE | 2016-09-24 09:11 | PN ---
DATE: 09/24/2016 I saw him in the transitional care unit, sitting up in bed with his prosthesis on, eating breakfast. He is comfortable, good spirits, good appetite. MEDICATIONS: He is on Amaryl, Coreg, Desyrel, Ecotrin, Glucophage, insulin, Levemir, Lipitor, Lopres sor, Maalox, Neurontin, Nitrostat, Pentoxil, phenobarbital, Plavix, Rocephin, and Zithromax. PHYSICAL EXAMINATION: VITAL SIGNS: He has a 98.6 temp, 63 pulse, 109/62 blood pressure, 18 respiratory rate, 99% O2 sat on nasal cannula. HEAD: Atraumatic, normocephalic. HEART: Regular rate. LUNGS: Clear to auscultation. ABDOMEN: Soft. EXTREMITIES: He has got a right BKA, otherwise no edema. LABORATORY DATA: He has a 6.8 white count, 11 hemoglobin, 32.1 hematocrit with 223 platelets. Sodiu m 141. Potassium is 5.3. I will adjust the potassium. BUN is 21. Creatinine is 1. GFR is greater than 60. Sugar is 62. Calcium is 9.4. Total bili is 0.3. AST is 47. ALT is 59, alk phos 89, tot al protein 7.1. Albumin is 3.9. He is being seen by pulmonary and endocrinology. He had acute myocardial infarction, extensive coron lis artery disease, right lower lobe pneumonia, diabetes, electrolyte abnormalities. We will check h is labs tomorrow. We will hold the bananas in his diet, and hopefully, he will do very well. Encour agement with physical therapy. Keith Montes DO cc: [id number] TT: 09/24/2016 09:10:36 Confirmation # [id number] Dictation # [id number] james
[2016-09-24] MEDS: Alum-Mag Hydrox-Simethicone Susp (30 mL) PO PRN (12:12)
--- NOTE | 2016-09-24 18:20 | PN ---
DATE: 09/24/2016 ROOM: 327 SUBJECTIVE: This is a 71-year-old male with recent uncontrolled type 2 insulin-requiring diabetes, n ow being followed closely for metabolic management. His glycemic levels are still fluctuating with l ow normal glucose values today and the latest glucose levels have ranged from 138 to152 and 221 mg/dL . Her latest chemistries showed a BUN of 21, sodium 141, potassium 5.3, chloride 105, CO2 of 31, glu cose 62 and creatinine 1.0. So, at this time, we will actually discontinue the overnight basal insul in with Levemir given as 8 units subQ at bedtime. Moreover, we will actually also increase glimepiri de or Amaryl to 4 mg p.o. b.i.d. a.c. breakfast and a.c. dinner to start today as ordered. We will c ontinue the low-dose correction scale using regular insulin as ordered. We will also continue the me tformin given as 500 mg b.i.d. after meals as ordered. We will titrate incrementally as indicated to optimize metabolic control. We will follow and advise accordingly. Lottie Dash MD cc: [id number] TT: 09/24/2016 18:20:09 Confirmation # [id number] Dictation # [id number] nicolas
[2016-09-25] MEDS: cefTRIAXone 1 gm in NS 100ml IVPB SCH (06:06)
[2016-09-25] MEDS: Insulin Reg-LOW-Coverage SC SCH ×4 (06:40→21:44)
[2016-09-25] MEDS: Aspirin 325 mg EC Tablets PO SCH (08:01)
[2016-09-25 09:24] LABS: ALB/GLOB RATIO 1.2 (1.1-1.8); ALKALINE PHOSPHATASE 92 U/L (38-133); ALT/SGPT 54 U/L (7-56); AST/SGOT 42 U/L (15-59); BILIRUBIN,TOTAL 0.3 mg/dL (0.2-1.3); BLOOD UREA NITROGEN 21 mg/dL (7-21); CALCIUM 8.9 mg/dL (8.4-10.5); CARBON DIOXIDE 28 mmol/L (21-33); CHLORIDE 99 mmol/L (95-110); GFR AFRICAN-AMERICAN > 60; POTASSIUM 5.2 mmol/L (3.6-5.0); SODIUM 134 mmol/L (132-148); TOTAL PROTEIN 6.7 g/dL (5.8-8.3)
[2016-09-25 09:25] LABS: HEMATOCRIT 32.8 % (42.0-52.0); MEAN CELL VOLUME 91.9 fL (80.0-105.0); MEAN CORPUSCULAR HEMOGLOBIN 31.4 pg (25.0-35.0); MEAN CORPUSCULAR HGB CONC 34.1 g/dl (31.0-37.0); MEAN PLATELET VOLUME 10.2 fl (7.0-11.0); RED CELL DISTRIBUTION WIDTH 12.8 % (11.5-14.5); WHITE BLOOD COUNT 5.3 10^3/ul (4.5-11.0)
[2016-09-25 09:34] LABS: GLUCOSE,RANDOM 351 mg/dL (70-110)
--- NOTE | 2016-09-25 10:07 | PN ---
DATE: 09/25/2016 SUBJECTIVE: The patient appears comfortable this morning. He is not short of breath at rest. PHYSICAL EXAMINATION: VITAL SIGNS: Temperature is 97.2, pulse 60, respirations 16, blood pressure 121 /68. Oxygen saturation on room air is 98%. HEENT: Normocephalic, atraumatic. No JVD. CARDIOVASCULAR: Positive S1, S2. No S3. LUNGS: Minimal/less crackles at the bases. Otherwise, clear. EXTREMITIES: The patient is status post right BKA. Left lower extremity shows no clubbing, cyanosis, or edema. Left calf is nontender to palpation. GASTROINTESTINAL: Abdomen is soft, nontender, nondistended. Bowel sounds are positive. SKIN: No acute rash. NEUROLOGIC: Limited at the present time. IMPRESSION: 1. Acute myocardial infarction. 2. Extensive coronary artery disease, status post multiple cardiac stents. 3. Right lower lobe pneumonia. 4. Uncontrolled diabetes mellitus. 5. Electrolyte abnormalities. PLAN: The patient appears very comfortable this morning. He is not short of breath at rest. He states he is feeling much better overall. On physical exam , there is no significant bronchospasm noted. In addition, there is no significant alveolar arterial gradient. Oxygen saturation on room air is now 98 %. I will continue with the current antibiotic therapy for now. I would continue with the cardiac and endocrine evaluations. Inputs are noted. Clinical status of the patient is significantly improved - compared to his initial presentation. However, again, the overall status/prognosis of this patient does remain guarded. I will discuss the above with Dr. Montes. Vasquez Malik MD cc: [phone] TT: 09/25/2016 10:06:27 Confirmation # [id number] Dictation # [id number] nicolas MONROY
--- NOTE | 2016-09-25 10:16 | PN ---
DATE: 09/25/2016 I saw him sitting up in bed this morning, eating his breakfast. He has a good appetite. He is feeli ng well. He is trying in physical therapy. He has got no complaints this morning. No chest pain, n o shortness of breath, no abdominal pain. He has his prosthesis on. He is looking forward to physic al therapy. He is on Amaryl, Coreg, Desyrel, Ecotrin, Glucophage, insulin, Lipitor, Lopressor, Maalox, Neurontin, Pentoxil, phenobarbital, Plavix, Rocephin and Zithromax. PHYSICAL EXAMINATION: VITAL SIGNS: Temp 97.2, 64 pulse, 114/65 blood pressure, 16 respiratory rate, 98% O2 sat on room air . HEENT: Head is atraumatic, normocephalic. Throat is moist. NECK: Supple. HEART: Regular rate. LUNGS: Clear to auscultation bilaterally. ABDOMEN: Soft. EXTREMITIES: He has a right BKA and the left leg has got no edema. He has a 6.8 white count, 11 hemoglobin, 223 platelets. Sodium 141, BUN is 21, creatinine 1, GFR is greater than 60, sugar is 62, calcium is 9.4, alk phos is 89. We will check his labs tomorrow. We will continue with aggressive treatment and care. He is on IV a ntibiotics. He has an acute myocardial infarction, coronary artery disease, high blood sugars, right lower lobe pneumonia and infiltrates, chest pain, non-ST elevation myocardial infarction, unstable a ngina and the right below knee amputation with gastroesophageal reflux disease and low potassium. We will watch him very closely, check his labs, encouragement in physical therapy. As per pulmonary, c ardiology, endocrinology and neuro. Keith Montes DO cc: [id number] TT: 09/25/2016 10:15:52 Confirmation # [id number] Dictation # [id number] en
--- NOTE | 2016-09-25 15:19 | PN ---
DATE: 09/25/2016 The patient is ambulating without symptoms. PHYSICAL EXAMINATION: VITAL SIGNS: Blood pressure 114/63, heart rate is 58. NECK: Negative JVD. LUNGS: Without rales. HEART: Reveals S1, S2. EXTREMITIES: Without edema. LABORATORY DATA: Hemoglobin is 11.2. Chemistries: The glucose is 351 with a potassium of 5.2. IMPRESSION: 1. Status post non-ST elevation myocardial infarction. 2. Coronary artery disease. 3. Diabetes mellitus. 4. Status post percutaneous transluminal coronary angioplasty and stent of an occluded obtuse margin al branch. 5. Ischemic dilated cardiomyopathy. PLAN: Given these findings, the patient is doing well in the TCU undergoing physical therapy. We will continue his Plavix for at least 1 year. Will reevaluate his LV function in approximately 6 months. Juancarlos Corey MD cc: [id number] TT: 09/25/2016 15:19:21 Confirmation # [id number] Dictation # [id number] camacho
--- NOTE | 2016-09-25 18:55 | PN ---
DATE: 09/25/2016 ROOM: 327 SUBJECTIVE: This is a 71-year-old male with recent uncontrolled type 2 insulin-requiring diabetes, n ow being followed closely for metabolic management. His glycemic levels are fluctuating as noted and the glucose values have ranged from 93 to 254 and 257 mg/dL. His latest chemistry showed a BUN of 2 1, sodium 134, potassium 5.2, chloride 99, CO2 28, glucose 351 and creatinine 1.0. So, at this time, we will actually resume the Levemir given as 6 units subQ at bedtime daily to start tonight. We hilary l titrate incrementally as indicated to optimize metabolic control. We will follow. Lottie Dash MD cc: [id number] TT: 09/25/2016 18:54:25 Confirmation # [id number] Dictation # [id number] james
[2016-09-25] MEDS ORDERED: Insulin Detemir 100 units/ml Vial (Levemir) SC SCH (22:00)
[2016-09-26] MEDS: cefTRIAXone 1 gm in NS 100ml IVPB SCH (06:05)
[2016-09-26 06:14] LABS: HEMATOCRIT 32.2 % (42.0-52.0); MEAN CELL VOLUME 91.7 fL (80.0-105.0); MEAN CORPUSCULAR HEMOGLOBIN 31.3 pg (25.0-35.0); MEAN CORPUSCULAR HGB CONC 34.2 g/dl (31.0-37.0); MEAN PLATELET VOLUME 10.2 fl (7.0-11.0); RED CELL DISTRIBUTION WIDTH 13.1 % (11.5-14.5); WHITE BLOOD COUNT 7.2 10^3/ul (4.5-11.0)
[2016-09-26 06:31] LABS: ALB/GLOB RATIO 1.3 (1.1-1.8); ALKALINE PHOSPHATASE 90 U/L (38-133); ALT/SGPT 55 U/L (7-56); AST/SGOT 40 U/L (15-59); BILIRUBIN,TOTAL 0.3 mg/dL (0.2-1.3); BLOOD UREA NITROGEN 27 mg/dL (7-21); CALCIUM 9.1 mg/dL (8.4-10.5); CARBON DIOXIDE 27 mmol/L (21-33); CHLORIDE 105 mmol/L (95-110); GFR AFRICAN-AMERICAN > 60; GLUCOSE,RANDOM 93 mg/dL (70-110); POTASSIUM 4.6 mmol/L (3.6-5.0); SODIUM 141 mmol/L (132-148)
[2016-09-26] MEDS: Insulin Reg-LOW-Coverage SC SCH ×4 (06:32→22:12)
[2016-09-26] MEDS: Aspirin 325 mg EC Tablets PO SCH (08:31)
--- NOTE | 2016-09-26 08:45 | PN ---
DATE: 09/26/2016 I saw him in the transitional care unit. He is resting comfortably. He is trying physical therapy. He is eating very well. MEDICATIONS: He is on Amaryl, Coreg, Desyrel, Ecotrin, Glucophage, insulin, Levemir, Lipitor, Lopressor, Maalox, Neurontin, Pentoxil, phenobarbital, Plavix , Rocephin, and Zithromax. PHYSICAL EXAMINATION: VITAL SIGNS: Temp 98, 64 pulse, 117/76 blood pressure, 14 respiratory rate, 98 % O2 sat on room air. HEAD: Atraumatic, normocephalic. HEART: Regular rate. LUNGS: Decreased breath sounds, but clear to auscultation. ABDOMEN: Soft. EXTREMITIES: Left BKA, and the right leg has no edema. LABORATORY DATA: He has a 7.2 white count, 11 hemoglobin, 32.2 hematocrit with platelets. Sodium 141, potassium 4.6, BUN 27, creatinine 1. GFR is greater than 60. Sugar is 254 better. Calcium is 9.1. Total bili is 0.3. AST is 40. ALT is 55, alk phos 90, total protein 7. Albumin is 4. He is being seen by endocrinology, cardiology, and pulmonology. Adjustments were made in his medications. He will be discharged tomorrow on Friday, 09/27. He is here for NSTEMI, CAD, diabetes, status post percutaneous transluminal coronary angioplasty with stent, ischemic dilated cardiomyopathy, and my plan is to discharge him tomorrow. Keith Montes DO cc: [id number] TT: 09/26/2016 08:44:56 Confirmation # [id number] Dictation # [id number] jn MTDD
[2016-09-26] MEDS: Alum-Mag Hydrox-Simethicone Susp (30 mL) PO PRN (14:44)
--- NOTE | 2016-09-26 17:02 | PN ---
DATE: 09/26/2016 This is a 71-year-old male with recent uncontrolled type 2 insulin-requiring diabetes with extremes o f glycemic fluctuations and today has low normal glycemic values done early this morning as noted. T he latest chemistries showed a BUN of 27, sodium 141, potassium 4.5, chloride 105, CO2 27, glucose 93 , and creatinine 1.0. Her glucose levels have ranged from 62 to 136 mg/dL. So at this time, w e will once again discontinue the basal insulin with Levemir, give him a very small dose of 6 units s ubQ at bedtime daily as ordered. We will continue the oral hypoglycemic drug therapy as given. We w ill continue the Amaryl given as 4 mg b.i.d. before meals and metformin given as 500 mg b.i.d. after meals . We will titrate incrementally as indicated to optimize metabolic control. We will foll ow. Lottie Dsah MD cc: [phone] TT: 09/26/2016 17:01:37 Confirmation # [id number] Dictation # [id number]
[2016-09-27] MEDS: cefTRIAXone 1 gm in NS 100ml IVPB SCH (06:03)
[2016-09-27 06:16] LABS: HEMATOCRIT 31.2 % (42.0-52.0); MEAN CELL VOLUME 91.2 fL (80.0-105.0); MEAN PLATELET VOLUME 9.8 fl (7.0-11.0); RED CELL DISTRIBUTION WIDTH 13.2 % (11.5-14.5); WHITE BLOOD COUNT 5.2 10^3/ul (4.5-11.0)
[2016-09-27 06:27] LABS: ALB/GLOB RATIO 1.2 (1.1-1.8); ALKALINE PHOSPHATASE 93 U/L (38-133); ALT/SGPT 49 U/L (7-56); AST/SGOT 47 U/L (15-59); BILIRUBIN,TOTAL 0.5 mg/dL (0.2-1.3); BLOOD UREA NITROGEN 20 mg/dL (7-21); CALCIUM 8.9 mg/dL (8.4-10.5); CARBON DIOXIDE 26 mmol/L (21-33); CHLORIDE 105 mmol/L (95-110); GFR AFRICAN-AMERICAN > 60; GLUCOSE,RANDOM 188 mg/dL (70-110); POTASSIUM 4.9 mmol/L (3.6-5.0); SODIUM 137 mmol/L (132-148); TOTAL PROTEIN 6.4 g/dL (5.8-8.3)
[2016-09-27] MEDS: Insulin Reg-LOW-Coverage SC SCH ×2 (06:52→12:47)
--- NOTE | 2016-09-27 08:43 | PN ---
DATE: 09/27/2016 SUBJECTIVE: The patient appears very comfortable this morning. He is not short of breath at rest. OBJECTIVE: VITAL SIGNS: Temperature is 97.0, pulse 60, respirations 14, blood pressure 123 /72. HEENT: Normocephalic, atraumatic. No JVD. CARDIOVASCULAR: Positive S1, S2. No S3. LUNGS: Clear bilaterally. EXTREMITIES: The patient is status post right BKA. Left lower extremity shows no clubbing, cyanosis, or edema. Left calf is nontender to palpation. GASTROINTESTINAL: Abdomen is soft, nontender, nondistended. Bowel sounds are positive. SKIN: No acute rash. NEUROLOGIC: Limited at the present time. IMPRESSION: 1. Acute myocardial infarction. 2. Extensive coronary artery disease, status post multiple cardiac stents. 3. Right lower lobe pneumonia. 4. Uncontrolled diabetes mellitus. 5. Electrolyte abnormalities. PLAN: The patient appears very comfortable this morning. He is not short of breath at rest. He states he is feeling much, much better overall. On physical exam, his lungs are now clear. In addition, there is no significant alveolar arterial gradient. The patient has received over 10 days of antibiotic therapy. I will discontinue the antibiotics this morning. I would continue with the cardiology and endocrine evaluations. Inputs are noted. Clinical status of the patient is significantly improved -- compared to the initial presentation. However, again, the overall status/prognosis of this patient does remain guarded. I will discuss the above with Dr. Montes. Vasquez Malik MD cc: [phone] TT: 09/27/2016 08:42:58 Confirmation # [id number] Dictation # [id number] rojelio MONROY
[2016-09-27] MEDS: Aspirin 325 mg EC Tablets PO SCH (09:02)
[2016-09-27 11:04] VITALS: O2SAT 100
--- NOTE | 2016-09-27 12:37 | PN ---
DATE: 09/27/2016 ROOM: 327 [facility]. SUBJECTIVE: This is a 71-year-old male with recent uncontrolled type 2 insulin-requiring diabetes no w taken off insulin therapy given as basal insulin overnight because of episodic bouts of early morni ng low normal glycemic fluctuation as noted. He is currently only on a combination of oral hypoglyce lai therapy as given. His latest glucose levels have ranged from 145-217 mg/dL. The latest chemistr y showed a BUN of 20, sodium of 137, potassium 4.9, chloride 105, CO2 26, glucose 188, and creatinine 0.9. So, at this time, we will continue the dual oral hypoglycemic drug therapy as given with metfo rmin given as 500 mg b.i.d. after meals and Amaryl given as 4 mg p.o. b.i.d. before meals as ordered. We will also recommend the same drug combination upon eventual discharge from the hospital. 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 He will f mariam with his medical doctor for outpatient diabetic and medical management. Lottie Dash MD cc: [id number] TT: 09/27/2016 12:36:15 Confirmation # [id number] Dictation # [id number] tn
--- NOTE | 2016-09-27 15:43 | DS ---
I saw him in his room, walking with a walker and his prosthesis. He is doing well. He is in good spirits. He is ready to go home today. He is comfortable. He is eating, and his blood sugars have been all under 200 the last 6 times they took it. PHYSICAL EXAMINATION: VITAL SIGNS: He has a 97 temp, 60 pulse, 123/72 blood pressure, 14 respiratory rate. HEENT: Head is atraumatic, normocephalic. HEART: Regular rate. LUNGS: Clear to auscultation. ABDOMEN: Soft. nt will go home on his Amaryl, Coreg, Desyrel, Ecotrin, Glucophage, Lipitor, Lopressor, Neurontin, , phenobarbital and Plavix. LABORATORY DATA: He has a 137 sodium, potassium 4.9, BUN 20, creatinine 0.9, GFR 60, last blood sugar is 188, calcium is 8.9. Total bili is 0.5, AST is 47, ALT is 49, alk phos 93, total protein 6.4, albumin is 3.5. White count is 5.2, hemoglobin 10.6, hematocrit 31.2, platelets of 233. Hopefully, he will do very well. He is being seen by cardiology and by pulmonology and by endocrinology. Will continue with the same medications. As per endocrinology, will hold off on insulin. Hopefully he will call me for a house call or an appointment. He had multiple issues. He had status post [id number] myocardial infarction, coronary artery disease, diabetes, status post percutaneous transluminal coronary angioplasty and ischemic dilated cardiomyopathy. Keith Montes DO cc: [phone] TT: 09/27/2016 13:58:58 nicolas MONROY
[2016-09-27 16:14] VITALS: BP 107/51; PULSE 61; RESP 18; TEMP 98.9
== END 2016-09-27 16:30 | disposition home or self-care (01) | DRG 193 ==
LOC: TRCU 21:30
PROVIDERS: ADMIT Family Medicine; ATTEND Family Medicine
PROC: F07Z9FZ Gait Training/Functional Ambulation Treatment using Assistive, Adaptive, Supportive or Protective Equipment (ICD-10-PCS; principal; 2016-09-21)
PROC: F08Z4FZ Home Management Treatment using Assistive, Adaptive, Supportive or Protective Equipment (ICD-10-PCS; 2016-09-22)
DX: J18.9 Pneumonia, unspecified organism (principal); Z79.2 Long term (current) use of antibiotics; I21.4 Non-ST elevation (NSTEMI) myocardial infarction; E11.42 Type 2 diabetes mellitus with diabetic polyneuropathy; I11.0 Hypertensive heart disease with heart failure; I42.0 Dilated cardiomyopathy; I50.9 Heart failure, unspecified; I25.10 Atherosclerotic heart disease of native coronary artery without angina pectoris; E78.00 Pure hypercholesterolemia, unspecified; G40.909 Epilepsy, unspecified, not intractable, without status epilepticus; E78.5 Hyperlipidemia, unspecified; E11.65 Type 2 diabetes mellitus with hyperglycemia; I25.5 Ischemic cardiomyopathy; K21.9 Gastro-esophageal reflux disease without esophagitis; H26.9 Unspecified cataract; Z79.4 Long term (current) use of insulin; Z91.81 History of falling; Z95.5 Presence of coronary angioplasty implant and graft; Z89.511 Acquired absence of right leg below knee; Z83.3 Family history of diabetes mellitus; Z82.49 Family history of ischemic heart disease and other diseases of the circulatory system

== ENCOUNTER 2016-10-20 17:27 | Inpatient (IN) | payer MEDICARE, OTHER ==
[2016-10-20] MEDS ORDERED: Nitroglycerin 2% Ointment Foilpak UD TOP STA (17:43)
--- NOTE | 2016-10-20 17:43 | ED PDOC ---
Arrival/HPI - General Time Seen by Provider: 10/20/16 17:32 Historian: Family - History of Present Illness Narrative History of Present Illness (Text): 10/20/16 17:37 71yo male witha history of severe ischemic dilated cardiomyopathy, poorly controlled diabetes, multivessel coronary artery disease with multiple stents previously placed, and a seizure disorder on Keppra (per family), presents after a witnessed seizure. Currently pt is not actively seizing, but is post- ictal and is not able to answer questions. Family report that pt was c/o chest pain and tightness before the seizure episode. Past Medical History - Provider Review Nursing Documentation Reviewed: Yes - Infectious Disease Hx of Infectious Diseases: None - Cardiac Hx Cardiac Disorders: Yes Hx Congestive Heart Failure: Yes Hx Hypertension: Yes - Pulmonary Hx Respiratory Disorders: No - Neurological Hx Neurological Disorder: Yes Hx Seizures: Yes (since 7 yrs old) - HEENT Hx HEENT Disorder: Yes Hx Cataracts: Yes - Renal Hx Renal Disorder: No - Endocrine/Metabolic Hx Endocrine Disorders: Yes Hx Diabetes Mellitus Type 2: Yes - Hematological/Oncological Hx Blood Disorders: No - Integumentary Hx Dermatological Disorder: Yes - Musculoskeletal/Rheumatological Hx Musculoskeletal Disorders: Yes Hx Falls: Yes - Gastrointestinal Hx Gastrointestinal Disorders: No - Genitourinary/Gynecological Hx Genitourinary Disorders: No - Psychiatric Hx Psychophysiologic Disorder: Yes Hx Depression: Yes Hx Substance Use: No - Surgical History Hx Coronary Stent: Yes - Anesthesia Hx Anesthesia: Yes Family/Social History Family/Social History: Unknown Family HX Smoking Status: Never Smoked Hx Alcohol Use: No Hx Substance Use: No Allergies/Home Meds Allergies/Adverse Reactions: Allergies Penicillins Allergy (Verified 10/20/16 17:32) ANAPHYLAXIS Home Medications: Home Meds Medication Instructions Recorded Confirmed Carvedilol [Coreg] 3.125 mg PO BID 06/20/16 09/20/16 Clopidogrel [Plavix] 75 mg PO DAILY 06/20/16 09/20/16 Gabapentin [Neurontin] 600 mg PO TID 06/20/16 09/20/16 Glimepiride [Amaryl] 1 mg PO DAILY 06/20/16 09/20/16 Nitroglycerin [Nitrostat] 0.4 mg SL PRN PRN 06/20/16 09/20/16 Pentoxifylline [Pentoxil] 400 mg PO TID 06/20/16 09/20/16 Phenobarbital [PHENobarbital Tab] 64.8 mg PO BID 06/20/16 09/20/16 metFORMIN [glucOPHAGE] 500 mg PO BID 06/20/16 09/20/16 traZODone [trazODONE HYDROCHLORIDE] 50 mg PO HS 06/20/16 09/20/16 Apixaban [Eliquis] 5 mg PO BID 09/17/16 09/20/16 Aspirin [Aspirin EC] 325 mg PO DAILY 09/17/16 09/20/16 Review of Systems - Review of Systems Systems not reviewed;Unavailable: Altered Mental Status Physical Exam - Physical Exam Physical Exam Limitations: Altered Mental Status Vital Signs Reviewed: Yes Vital Signs Pulse Resp BP Pulse Ox 10/20/16 19:14 122/68 10/20/16 17:32 90 14 189/117 H 86 L Temperature: Afebrile Blood Pressure: Hypertensive Pulse: Regular Respiratory Rate: Normal Appearance: No: Cachectic Pain Distress: None Mental Status: Positive for: Confused Finger Stick Blood Glucose: 283 - Systems Exam Head: Present: Atraumatic, Normocephalic Pupils: Present: PERRL Extroacular Muscles: Present: EOMI Conjunctiva: Present: Normal Mouth: Present: Moist Mucous Membranes. No: Dry, Drooling Neck: Present: Normal Range of Motion. No: Meningeal Signs, MIDLINE TENDERNESS Respiratory/Chest: Present: Clear to Auscultation, Good Air Exchange. No: Respiratory Distress, Accessory Muscle Use Cardiovascular: Present: Regular Rate and Rhythm, Normal S1, S2. No: Murmurs, Tachycardic Abdomen: Present: Normal Bowel Sounds. No: Tenderness, Distention, Peritoneal Signs, Rebound, Guarding Back: Present: Normal Inspection. No: Midline Tenderness, Paraspinal Tenderness Upper Extremity: Present: Normal Inspection. No: Cyanosis, Edema Lower Extremity: Present: Normal Inspection. No: Edema Neurological: Present: Other (following simple commands, moving all extremities without difficulty, no facial assymetry) Skin: Present: Warm, Dry, Normal Color. No: Rashes Psychiatric: Present: Alert. No: Anxious, Agitated Medical Decision Making ED Course and Treatment: 71yo male after a witnessed seizure before coming to the ED, also family report he was c/o chest tightness before the episode. pt seen immediately on arrival, glu >200, protecting his airway BP elevated ASA and NTG ordered labs and imaging pending Patient's previous records reviewed, patient was discharged in the beginning of this month after a diagnosis of an STEMI. Had a stent placed. EKG shows normal sinus, 75bpm, no ST-segment elevations. Interpreted by me. 18:05 on reevaluation, pt alert and awake, denies complaints, no focal neurological on examination 10/20/16 18:44 CXR shows cardiomegaly, vasc. congestion, no pneumothorax. Interpreted by me yonas ordered 10/20/16 19:10 pt in no distress, resting comfortably in bed. dw Dr. Rosado in detail, accepted pt to tele. pt aware of and agrees with plan CT Head Without Intravenous Contrast FINDINGS: Artifacts: Streak artifact degrades image quality. Motion artifact degrades image quality. Brain: There is dilatation of sulci gyri and ventricles. There is no midline shift. There is decreased attenuation in periventricular white matter. There are age-indeterminate lacunar infarcts in the left basal ganglia. There are no focal masses. There are no focal hemorrhages. Rosales- white differentiation is visualized. Ventricles: See above Bones: Cranial vault is intact. Soft tissues: unremarkable Sinuses: There is no acute sinusitis. Ears and mastoids: Middle ears and mastoids are unremarkable. Orbits: Orbital contents are unremarkable. IMPRESSION: Atrophy and small vessel disease, no bleed; age indeterminate left basal ganglia lacunar infarcts Dictated and Authenticated by: Lyric Tejada MD 10/20/2016 6:46 PM Eastern Time ([place] & [place]) - Lab Interpretations Lab Results: 10/20/16 17:15 10/20/16 17:15 Lab Results 10/20/16 17:15: Sodium 138, Potassium 4.2, Chloride 103, Carbon Dioxide 17 L, Anion Gap 22 H, BUN 19, Creatinine 1.0, Est GFR ( Amer) > 60, Est GFR ( Non-Af Amer) > 60, Random Glucose 354 H* D, Calcium 9.6, Total Bilirubin 0.3, AST 35, ALT 44, Alkaline Phosphatase 90, Lactate Dehydrogenase 515, Total Creatine Kinase 94, Troponin I < 0.01 D, NT-Pro-B Natriuret Pep 2760 H, Total Protein 8.0, Albumin 4.7, Globulin 3.3, Albumin/Globulin Ratio 1.4 10/20/16 17:15: PT 11.2, INR 1.04, APTT 24.7 10/20/16 17:15: WBC 7.0 D, RBC 3.83, Hgb 12.3 L, Hct 37.0 L, MCV 96.6, MCH 32.1 , MCHC 33.2, RDW 14.6 H, Plt Count 231, MPV 10.8, Gran % 44.9 L, Lymph % (Auto) 48.6 H, Rabun % (Auto) 5.8, Eos % (Auto) 0.4 L, Baso % (Auto) 0.3, Gran # 3.14, Lymph # 3.4, Rabun # 0.4, Eos # 0.0, Baso # 0.02 - RAD Interpretation Radiology Orders: 10/20/16 17:33 HEAD W/O CONTRAST [CT] Stat CHEST PORTABLE [RAD] Stat - Medication Orders Current Medication Orders: Discontinued Medications Aspirin (Aspirin Supp) 300 mg RC STAT STA Stop: 10/20/16 17:35 Last Admin: 10/20/16 17:51 Dose: 300 mg Furosemide (Lasix) 40 mg IVP STAT STA Stop: 10/20/16 18:45 Last Admin: 10/20/16 19:14 Dose: 40 mg Insulin Human Regular (Humulin R) 10 units IV STAT STA Stop: 10/20/16 18:31 Last Admin: 10/20/16 18:40 Dose: 10 units Nitroglycerin (Nitro-Bid 2% Oint) 1 ea TOP STAT STA Stop: 10/20/16 17:44 Last Admin: 10/20/16 17:51 Dose: 1 ea Disposition/Present on Arrival - Present on Arrival Any Indicators Present on Arrival: No History of DVT/PE: No History of Uncontrolled Diabetes: Yes Urinary Catheter: No History of Decub. Ulcer: No History Surgical Site Infection Following: None - Disposition Have Diagnosis and Disposition been Completed?: Yes Diagnosis: Seizure, Chest pain Disposition: HOSPITALIZED Disposition Time: 19:05 Patient Plan: Admission Patient Problems: Current Active Problems Problem Status Onset Chest pain Acute Seizure Acute Condition: FAIR Discharge Instructions (ExitCare): Chest Pain (ED) [facility], [Primary Care Provider] - Follow up with primary
[2016-10-20 17:46] LABS: ADD MANUAL DIFF? NO
[2016-10-20 17:55] LABS: BASO # 0.02 K/mm3 (0.0-2.0); BASO % 0.3 % (0.0-3.0); EOS % 0.4 % (1.5-5.0); GRAN # 3.14 (1.4-6.5); GRAN % 44.9 % (50.0-68.0); LYMPH # 3.4 (1.2-3.4); LYMPH % 48.6 % (22.0-35.0); MEAN CELL VOLUME 96.6 fL (80.0-105.0); MEAN CORPUSCULAR HEMOGLOBIN 32.1 pg (25.0-35.0); MEAN CORPUSCULAR HGB CONC 33.2 g/dl (31.0-37.0); MEAN PLATELET VOLUME 10.8 fl (7.0-11.0); MONO # 0.4 (0.1-0.6); MONO % 5.8 % (1.0-6.0); PLATELET COUNT 231 10^3/uL (120.0-450.0); RED CELL DISTRIBUTION WIDTH 14.6 % (11.5-14.5)
[2016-10-20 18:07] LABS: ALB/GLOB RATIO 1.4 (1.1-1.8); ALKALINE PHOSPHATASE 90 U/L (38-133); ALT/SGPT 44 U/L (7-56); AST/SGOT 35 U/L (15-59); BILIRUBIN,TOTAL 0.3 mg/dL (0.2-1.3); BLOOD UREA NITROGEN 19 mg/dL (7-21); CALCIUM 9.6 mg/dL (8.4-10.5); CARBON DIOXIDE 17 mmol/L (21-33); CHLORIDE 103 mmol/L (98-107); GFR AFRICAN-AMERICAN > 60; INR 1.04 (0.93-1.08); PARTIAL THROMBOPLASTIN TIME 24.7 Seconds (23.7-30.8); POTASSIUM 4.2 mmol/L (3.6-5.0); SODIUM 138 mmol/L (132-148)
[2016-10-20 18:23] LABS: TROPONIN I < 0.01 ng/mL
[2016-10-20 18:24] LABS: GLUCOSE,RANDOM 354 mg/dL (70-110)
[2016-10-20] MEDS ORDERED: Insulin Regular 1 UNITS/0.01 ML ML IV STA (18:30)
--- NOTE | 2016-10-20 18:46 | CT ---
EXAM: CT Head Without Intravenous Contrast CLINICAL HISTORY: 71 years old, male; Signs and symptoms; Altered mental status/memory loss; Confusion or disorientation; Additional info: Seizure TECHNIQUE: Axial computed tomography images of the head/brain without intravenous contrast. This CT exam was performed using one or more of the following dose reduction techniques: automated exposure control, adjustment of the mA and/or kV according to patient size, and/or use of iterative reconstruction technique. EXAM DATE/TIME: 10/20/2016 5:33 PM COMPARISON: CT - HEAD W/O CONTRAST 09/17/2016 3:22:58 AM FINDINGS: Artifacts: Streak artifact degrades image quality. Motion artifact degrades image quality. Brain: There is dilatation of sulci gyri and ventricles. There is no midline shift. There is decreased attenuation in periventricular white matter. There are age-indeterminate lacunar infarcts in the left basal ganglia. There are no focal masses. There are no focal hemorrhages. Rosales-white differentiation is visualized. Ventricles: See above Bones: Cranial vault is intact. Soft tissues: unremarkable Sinuses: There is no acute sinusitis. Ears and mastoids: Middle ears and mastoids are unremarkable. Orbits: Orbital contents are unremarkable. IMPRESSION: Atrophy and small vessel disease, no bleed; age indeterminate left basal ganglia lacunar infarcts
[2016-10-20 21:35] VITALS: BMI 24.2
--- NOTE | 2016-10-21 09:10 | HP ---
I know him from house calls. He is seen in the Emergency Room. He had a witnessed seizure. He is a 71-year-old man with a right BKA with severe dilated cardiomyopathy, poorly controlled diabetes, noncompliant, multiple stents in the heart. He had a seizure, on Keppra, witnessed currently. Currently, he is comfortable. He has an appetite. He is in bed. He also had chest tightness and pain. PAST MEDICAL HISTORY: Heart failure, hypertension, seizures since he was 7 years of age, cataracts, diabetes out of control, noncompliant, falls dermatological disorders, depression, coronary stents. FAMILY HISTORY: Hypertension and diabetes in the family. SOCIAL HISTORY: He never smoked. No alcohol, no drugs. ALLERGIES: PENICILLIN. MEDICATIONS: He is on Coreg, Plavix, Neurontin, Amaryl, Nitrostat, , phenobarbital, Glucophage, trazodone, Eliquis, aspirin. I do not see Keppra there. I will put him on Keppra. REVIEW OF SYSTEMS: He was altered when he came in. Now he is comfortable. He is alert and oriented. He is hungry. No vision changes, no hearing changes, no sore throat. No chest pain, no shortness of breath, no abdominal pain. He does have right stump tingling and numbness. He has got some swelling of the left leg a little bit. He does not believe he has a seizure, but it was witnessed. PHYSICAL EXAMINATION: VITAL SIGNS: He has a 98.8 temp, 90 pulse, 14 respiratory rate, 189/117 blood pressure. It is down to 122/68 blood pressure, 86% O2 sat. He will have some oxygen. HEENT: Head is atraumatic, normocephalic. Throat is moist. NECK: Supple. Pupils are equal and reactive to light. Extraocular muscles are intact. Mouth is moist. HEART: Regular rate. Normal S1, S2. LUNGS: Decreased breath sounds, but clear to auscultation. No wheezes, no rhonchi, no rales. ABDOMEN: Soft, nontender, positive bowel sounds. No guarding, no rebound, no CVA tenderness. EXTREMITIES: He has got a right BKA, trace edema, left ankle. SKIN: Warm and dry. NEUROLOGIC: Alert and oriented at this time. LABORATORY DATA: He had blood tests. He has a 7 white count, 12.3 hemoglobin, 37 hematocrit with 231 platelets. INR is 1.04. Sodium 138, potassium 4.2. BUN 19, creatinine 1. GFR is greater than 60. Sugar is 354. Calcium is 9.6. Total bili is 0.3. AST is 35. ALT is 34, alk phos . Lactic dehydrogenase is 515. Troponin I is less than 0.01. BNP is 276. He will be on Lasix IV. Total protein is 8. He has a CAT scan of the head, which showed atrophy, small-vessel disease, no bleed, old basal left ganglia lacunar infarcts. He is going to have a consult with neurology and cardiology. He will have his medications Keppra. We will check his troponins, oxygen, and we will watch him closely. Keith Montes DO cc: [phone] TT: 10/21/2016 09:09:18 jn MTDD
--- NOTE | 2016-10-21 09:40 | RAD ---
HISTORY: Cough COMPARISON: 09/19/2016 FINDINGS: LUNGS: There is pulmonary venous congestion and interstitial pulmonary edema. There is also perihilar airspace disease. PLEURA: There are small pleural effusions, larger on the right. No pneumothorax. CARDIOVASCULAR: There is persistent moderate cardiomegaly with prominent central vasculature. OSSEOUS STRUCTURES: No significant abnormalities. VISUALIZED UPPER ABDOMEN: Normal. OTHER FINDINGS: None. IMPRESSION: Worsening congestive heart failure with probable development of perihilar alveolar pulmonary edema. Also noted are small bilateral pleural effusions, larger on the right.
[2016-10-21] MEDS: levETIRAcetam 500 mg/5ml UD cups PO SCH ×2 (09:52→18:47)
[2016-10-21] MEDS ORDERED: Aspirin 325 mg EC Tablets PO SCH (10:00)
[2016-10-21] MEDS ORDERED: Insulin Reg-HIGH-Coverage SC SCH (11:30)
[2016-10-21] MEDS ORDERED: Insulin Regular 1 UNITS/0.01 ML ML ONE ×2 (12:23→22:24)
--- NOTE | 2016-10-21 17:07 | CON ---
DATE: 10/21/2016 HISTORY OF PRESENT ILLNESS: The patient is a 71-year-old male who presented with a witnessed seizure . The patient has had seizures since childhood, in which he has been treated with Keppra as well as phenobarbital. The patient's cardiac status is status post PTCA and stent of a suboccluded obtuse marginal branch in September this year. This caused his non-STEMI, which was resolved with a PTCA and stent. He is also notable for multivessel CAD with an ischemic cardiomyopathy. He suffers from diabetes mellitus and hypertension. He denies chest pain, denies shortness of breath . SOCIAL HISTORY: The patient denies smoking. REVIEW OF SYSTEMS: Reviewed. No cardiac symptomatology is noted. PHYSICAL EXAMINATION: VITAL SIGNS: The blood pressure is 120/64, heart rate is in the 60s, normal sinus rhythm. NECK: Negative JVD. LUNGS: Without rales. HEART: Revealed S1, S2. EXTREMITIES: Without edema. The right lower extremity is status post amputation. EKG shows sinus rhythm with diffuse ST-T changes. LABORATORIES: Hemoglobin is 12.3. Chemistries: Troponin is negative x 1. The proBNP is 2760 with a glucose of 354. IMPRESSION: 1. Status post seizure. 2. Stable angina. 3. Recent non-ST elevation myocardial infarction. 4. Ischemic dilated cardiomyopathy. 5. Diabetes mellitus. 6. No evidence for acute coronary syndrome. Given these findings, we will restart the patient on Plavix along with Eliquis. We will stop the Eco andrew given the high risk of bleeding. The patient's cardiac status is stable at this time. Juancarlos Corey MD cc: [id number] TT: 10/21/2016 17:07:34 Confirmation # [id number] Dictation # [id number] en
--- NOTE | 2016-10-21 17:29 | CON ---
DATE: 10/21/2016 In ER holding room 4. HISTORY OF PRESENT ILLNESS: This is a 71-year-old male with known history of type 2 diabetes and hyp ertension, presenting here with a witnessed seizure and currently been in a postictal state and has b een admitted for closer neurologic and cardiac evaluation and management, and is also being referred now for metabolic management of poorly controlled diabetes. PAST MEDICAL HISTORY: History of type 2 diabetes, currently on a combination of metformin given as 5 00 mg b.i.d. and Amaryl given as 1 mg daily. History of diabetic retinopathy and polyneuropathy with also diabetic macrovascular complications of coronary artery disease, with multiple stent placements and underlying dilated cardiomyopathy. History of chronic seizure disorder on Keppra medications as noted, history of hypertension and dyslipidemia, history of previous admissions for congestive heart failure, history of generalized anxiety and depression. FAMILY HISTORY: Positive for hypertension and heart disease. SOCIAL HISTORY: The patient has supportive family. No known substance use. REVIEW OF SYSTEMS: As mentioned above, admits to generalized body weakness with easy fatigability an d tiredness and suboptimal energy level. Also admits to bifrontal headaches with episodic bouts of d izziness and lightheadedness. No chest pains or palpitations or PNDs. Admits, however, to progressi ve shortness of breath, especially on exertion. His oral intake has been variable and suboptimal wit h nausea and dyspepsia and habitual constipation. PHYSICAL EXAMINATION: GENERAL: An average built male in no apparent distress. VITAL SIGNS: Blood pressure 150/90, pulse of 100 beats per minute and regular, temperature 98, respi rations 20. Height is 5 feet 6 inches, weight is 150 pounds. HEENT: Head normocephalic. Eyes anicteric with pink conjunctivae. Fundoscopy not possible at this time. Ears, nose and throat otherwise normal. NECK: Supple. Thyroid gland is normal size. No carotid bruits. No cervical adenopathy. CARDIOPULMONARY: Some adynamic precordium. S1, S2 is rapid and regular. LUNGS: Show scattered rhonchi and bibasilar rales. ABDOMEN: Flat, soft with positive bowel sounds. EXTREMITIES: There is +1 bipedal edema. Pulses are +2 bilaterally. LABORATORY DATA: The chemistry showed a BUN of 19, sodium 138, potassium 4.2, chloride 103, CO2 17, glucose 354 and creatinine 1.0. His proBNP is 2760. ASSESSMENT: This is a 71-year-old male with uncontrolled and decompensated type 2 diabetes with hype rglycemic accelerations most likely related to the intercurrent physical stressors, which as we know could increase insulin resistance and further impair glucose tolerance thereof. He is presenting her e with a witnessed seizure on the background of chronic seizure disorder and also with concomitant co ngestive heart failure, again on the background of significant cardiac vasculopathy with multivessel coronary artery disease and previous coronary stent placements and underlying dilated cardiomyopathy. He also has diabetic microvascular complications of retinopathy and polyneuropathy with diabetic ma crovascular complications of coronary artery disease and peripheral arterial disease and vasculopathy . PLAN OF MANAGEMENT: We will actually discontinue the metformin in the light of underlying congestive heart failure, as this is actually a relative contraindication for the aforementioned medication. W e will continue the Amaryl at the higher dose of 4 mg p.o. b.i.d. before meals to start today as orde red. We will modify the coverage scale to obviate hypoglycemia and detailed orders have been given. We will also consider the addition of basal insulin if fasting hyperglycemic levels persist. We hilary l obtain a hemoglobin A1c to confirm his prior glycemic control and baseline thyroid function studies and a lipid panel will be ordered. We will follow and advise accordingly. Lottie Dash MD cc: [id number] TT: 10/21/2016 17:29:17 Confirmation # [id number] Dictation # [id number] nicolas
--- NOTE | 2016-10-21 17:57 | CON ---
DATE: 10/21/2016 CHIEF COMPLAINT: Seizure. HISTORY OF PRESENT ILLNESS: This is a 71-year-old man who is well known to me from 09/20/2016 with h istory of poorly controlled diabetes, noncompliant, with a last A1c of 15.4, diabetic peripheral neur opathy, right BKA, severe dilated cardiomyopathy, history of seizure disorder on phenobarbital, has b een noncompliant with his medication, history of DKA, history of subarachnoid hemorrhage in 06/2016 w roni came in to the hospital for chest tightness and pain and had a witnessed episode of seizure-like a ctivity and seemed very postictal. He was found to be also hyperglycemic of 354 blood sugar, and a p henobarbital is sent. His previous phenobarbital level in the past has been low, indicating not been compliant. He has been placed on Keppra for seizure prophylaxis. 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 The patient has a right BKA. He is following commands and has been noncompliant with medication in the past. PAST MEDICAL HISTORY: History of subarachnoid hemorrhage in 06/2016, history of diabetic ketoacidosi s; history of seizure disorder, on phenobarbital; history of severe cognitive impairment; history of uncontrolled diabetes, noncompliance, with last A1c 15.4; history diabetic peripheral neuropathy. SOCIAL HISTORY: No illicit drug use, smoking, or ETOH abuse. ALLERGIES: ALLERGIC TO PENICILLIN. FAMILY HISTORY: Has hypertension and diabetes in the family. REVIEW OF SYSTEMS: A 14-point review of systems is negative except for the HPI. MEDICATIONS: Reviewed via nurses' reconciliation sheet. PHYSICAL EXAMINATION: VITAL SIGNS: Temperature afebrile, pulse rate 56, blood pressure 120/64, respiratory rate 16, oxygen 98% via room air. GENERAL: The patient is sitting up in bed, in no acute distress. HEENT: Atraumatic, normocephalic. PERRLA. Extraocular muscles intact. NECK: Supple, no JVD, no adenopathy noted. LUNGS: Decreased breath sounds bilaterally but no wheeze, no rhonchi. ABDOMEN: Soft, nontender, nondistended. Bowel sounds present. EXTREMITIES: Have a right BKA. Trace edema on the left. NEUROLOGIC: The patient is alert, oriented to person and place, knows the president of the [employer]. Recall after 5 minutes is 0/3. Poor attention span. Slow thought process. Has baseline cogn itive impairment. Cranial nerves II through XII intact. MOTOR: Moves all extremities except for right BKA. SENSORY: Decreased light touch with the calves bilaterally. Decreased vibration at the elbows and k nees. REFLEXES: DTRs are 1+ throughout. COORDINATION: [id number] intact. GAIT: Deferred for now. LABORATORIES: Sodium 138, potassium 4.2, chloride 103, carbon dioxide 17, BUN of 19, creatinine of 1 . Random glucose 354. ASSESSMENT AND PLAN: This is a 71-year-old man with past medical history of uncontrolled diabetes wi th a recent A1c in 09/2016 of 15.4, history of diabetic peripheral neuropathy secondary to uncontroll ed diabetes, and has been noncompliant with seizure medications as well as diabetic medications; has history of seizure disorder in the past, on phenobarbital; history of severe cognitive impairment, hi story of subarachnoid hemorrhage in 06/2016, history of diabetic ketoacidosis in 09/2016, who came in with chest tightness, chest pain and breakthrough seizure. IMPRESSION: His breakthrough seizure is likely secondary to noncompliance with the seizure medicatio ns/phenobarbital and secondary to hyperglycemia, which brings down the seizure threshold. At this ti me, recommend: 1. Medication adherence. Education advised. Need to talk to his lining caser and social problems specialist. Radha wong needs home health aide are someone to help him take his medications daily. 2. Continue with Keppra 500 mg p.o. b.i.d. and phenobarbital 64.8 mg p.o. b.i.d. for seizure prophyl axis. 3. He is on gabapentin 600 mg p.o. t.i.d. for neuropathic pain which also helps his seizures. 4. Recommend to be on Eliquis for his atrial fibrillation and history of DVT, and Plavix for antipla telet effect for stroke prevention. 5. Needs better diabetic control, and diabetic education needs to be given to prevent further hyperg lycemics accelerations. At this time, continue chronic present management, monitor his electrolytes and correctly accordingly. Will need likely subacute rehab with physical and occupational therapy. Thank you for this consult. Please reconsult if there is any further change in mental status. Geoff Ayers MD cc: [phone] TT: 10/21/2016 17:56:25 Confirmation # [id number] Dictation # [id number] mn
[2016-10-21] MEDS: Insulin Reg-LOW-Coverage SC SCH ×2 (18:22→22:26)
--- NOTE | 2016-10-22 00:15 | CARD ---
APPROVED REPORT EKG Measurement Heart [id number] <Conclusion> Sinus rhythm with sinus arrhythmia with fusion complexes Low voltage QRS Cannot rule out Anterior infarct, age undetermined Abnormal ECG
[2016-10-22 05:57] LABS: HEMATOCRIT 35.7 % (42.0-52.0); MEAN CELL VOLUME 94.4 fL (80.0-105.0); MEAN CORPUSCULAR HGB CONC 33.9 g/dl (31.0-37.0); MEAN PLATELET VOLUME 10.1 fl (7.0-11.0); RED CELL DISTRIBUTION WIDTH 14.4 % (11.5-14.5); WHITE BLOOD COUNT 4.5 10^3/ul (4.5-11.0)
[2016-10-22 06:30] LABS: BILIRUBIN,TOTAL 0.5 mg/dL (0.2-1.3); CALCIUM 9.4 mg/dL (8.4-10.5); GFR AFRICAN-AMERICAN > 60; POTASSIUM 4.8 mmol/L (3.6-5.0)
[2016-10-22 06:44] LABS: ALB/GLOB RATIO 1.2 (1.1-1.8); ALKALINE PHOSPHATASE 86 U/L (38-133); ALT/SGPT 41 U/L (7-56); AST/SGOT 34 U/L (15-59); BLOOD UREA NITROGEN 21 mg/dL (7-21); CARBON DIOXIDE 28 mmol/L (21-33); CHLORIDE 100 mmol/L (98-107); GLUCOSE,RANDOM 243 mg/dL (70-110); TOTAL PROTEIN 6.9 g/dL (5.8-8.3)
[2016-10-22 06:53] LABS: SODIUM 138 mmol/L (132-148)
[2016-10-22 06:59] VITALS: O2SAT 98
[2016-10-22] MEDS: Insulin Reg-LOW-Coverage SC SCH ×2 (08:46→11:47)
--- NOTE | 2016-10-22 09:27 | PQF CHF ---
This form is a permanent part of the medical record Clarification of your documentation is requested to better reflect the severity of illness and intensity of treatment of your patient. Indicators present Pt w/ Hx heart failure, BNP 2760 on admission, CXR- shows worsening CHF, Treating w/ IV Lasix. Please document type & acuity of CHF present on admission [x] Diagnosis of CHF and/or history of CHF [x] BNP > 200 [x] Imaging Finding of Pulmonary Edema /Pleural Effusions [] Fluid/Volume Overload [] Pitting edema [] Ejection Fraction < 40% (Indicative of Systolic Heart Failure) [] Ejection Fraction > 40% (Indicative of Diastolic Heart Failure) [] Dyspnea / Orthopenea / Paroxysmal Nocturnal Dyspnea [] Other: Location in the medical record that reflects the above clinical findings: [x] H& P Treatment Provided: [x] Lasix 40 IV qd PHYSICIAN'S RESPONSE Based on your medical judgment of the clinical indicators outlined above, are you treating this patient for a known or suspected: [] Acute CHF [] Systolic [] Diastolic [] Combined [] Chronic CHF [] Systolic [] Diastolic [] Combined PLEASE SEE CADIOLOGY NOTE I AGREE WITH HIM [] Acute on Chronic CHF []Systolic [] Diastolic [] Combined [] CHF due hypertension [] Acute systolic []Chronic systolic [] Acute/ chronic systolic [] Other, please indicate: [] [] If Unable to Determine, please check the box, sign and date. Present On Admission (POA) Indicator: [] Present at the time of admission [] Not present at the time of admission [] Clinically Undetermined In responding to this query, please exercise your independent professional judgment. The fact that a question is asked does not imply that any particular answer is desired or expected. Thank you for your clarification on this documentation. If you have any questions please call:[ ][phone] * Thank you, [ ]Shruti Gonzalez RN CDS wave solder offbearer PORFIRIO
[2016-10-22] MEDS: levETIRAcetam 500 mg/5ml UD cups PO SCH (09:57)
[2016-10-22 12:07] VITALS: BP 106/54; PULSE 55; RESP 20; TEMP 98.2
--- NOTE | 2016-10-22 14:24 | PN ---
DATE: 10/22/2016 The patient is asymptomatic. There are no recurrent seizures. PHYSICAL EXAMINATION: VITAL SIGNS: Blood pressure 106/54. The heart rate is in the 50s. NECK: Negative JVD. LUNGS: Without rales. HEART: Revealed S1, S2. EXTREMITIES: Without edema. LABORATORIES: Glucose is 243. Chemistries: Hemoglobin is 12.1. IMPRESSION: 1. Seizure secondary to noncompliance with medications. 2. History of recent non-ST elevation myocardial infarction. 3. Coronary artery disease. 4. Diabetes mellitus. PLAN: Given these findings, there is no evidence for acute coronary syndrome. The patient is discha rged. We will arrange for an outpatient stress test. Juancarlos Corey MD cc: [id number] TT: 10/22/2016 14:24:09 Confirmation # [id number] Dictation # [id number] camacho
--- NOTE | 2016-10-22 15:10 | PN ---
DATE: 10/22/2016 ROOM: 262 This is a 71-year-old male with recent uncontrolled type 2 insulin-requiring diabetes, now being foll owed closely for metabolic management. He presented here with a sudden onset of a seizure event and developed supervening hyperglycemic accelerations as noted thereof. Today's glucose levels are fluctuating and are ranging from 228-271 mg/dL. It dropped to 41 mg/dL la st night as noted. The latest chemistry showed a BUN of 21, sodium 138, potassium 4.8, chloride 100, CO2 28, glucose 243 and creatinine 0.8. So at this time, we will continue the oral hypoglycemic therapy given as Amaryl at 4 mg b.i.d. before meals as ordered and hold off on the metformin, which he was taking on the outpatient because of sup ervening congestive heart failure on presentation to the hospital at this time. Moreover, he may be undergoing cardiac procedures, for which metformin has to be withheld anyhow. So we will hold off th e reinitiation of metformin medication for now. We will consider the addition of Januvia, which is t he only DPP-4 inhibitor we have on the hospital formulary, if hyperglycemic levels persist, especiall y postprandially. We will continue the low-dose correction scale using regular insulin as ordered an d also continue the Amaryl given as 4 mg b.i.d. before meals as given. We will consider the addition of basal insulin given as Levemir if fasting hyperglycemic levels persist otherwise. We will follow . Lottie Dash MD cc: [id number] TT: 10/22/2016 15:09:14 Confirmation # [id number] Dictation # [id number] en
--- NOTE | 2016-10-22 22:59 | DS ---
I saw him resting comfortably in bed. He slept well, doing better. He is comfortable. No chest pain or shortness of breath, no abdominal pain, no more seizures. PHYSICAL EXAMINATION: VITAL SIGNS: She has a 97.3 temp, 55 pulse, 111/74 blood pressure, 19 respiratory rate, 98% O2 sat on room air. HEENT: Head is atraumatic, normocephalic. Throat is moist. NECK: Supple. HEART: Regular rate. LUNGS: Clear to auscultation. ABDOMEN: Soft. EXTREMITIES: Right BKA and left leg has got no edema. MEDICATIONS: He is going to go home on Amaryl, Coreg, Desyrel, Eliquis, Keppra , Lasix, Neurontin, Pentoxil, phenobarbital, Plavix, his Amaryl is bumped up. LABORATORY: He has a 138 sodium, potassium 4.8, Bun , creatinine 0.8, GFR is greater than 60. Last blood sugar was 228. Calcium is 9.4, total bili is 0.5, AST is 34, ALT is 41, alkaline phosphatase 86, total protein 6.9 with 4.5 white count, 12.1 hemoglobin, 35.7 hematocrit, platelets. PLAN: He was seen by neuro, endocrinology and cardiology. He came in for seizures, that stopped, he is on Keppra. We are going to discharge him back to where he came from. He will be followed in the outpatient. He should call for a house call. He was here for status post seizure; high blood sugar, out of control, noncompliant; ischemic dilated cardiomyopathy; and congestive heart failure. Keith Montes DO cc: [id number] TT: 10/22/2016 22:58:31 nicolas MONROY
== END 2016-10-22 16:35 | disposition home or self-care (01) | DRG 101 ==
LOC: ED 17:27 → ERH 19:11 → 2RNO 10-21 23:39
PROVIDERS: ADMIT Family Medicine; ATTEND Family Medicine
DX: G40.909 Epilepsy, unspecified, not intractable, without status epilepticus (principal); Z91.14 Patient's other noncompliance with medication regimen; E11.65 Type 2 diabetes mellitus with hyperglycemia; I11.0 Hypertensive heart disease with heart failure; I50.9 Heart failure, unspecified; I42.0 Dilated cardiomyopathy; E11.42 Type 2 diabetes mellitus with diabetic polyneuropathy; I25.5 Ischemic cardiomyopathy; I25.118 Atherosclerotic heart disease of native coronary artery with other forms of angina pectoris; H26.9 Unspecified cataract; E11.319 Type 2 diabetes mellitus with unspecified diabetic retinopathy without macular edema; F41.1 Generalized anxiety disorder; I73.9 Peripheral vascular disease, unspecified; E78.5 Hyperlipidemia, unspecified; I25.2 Old myocardial infarction; Z91.19 Patient's noncompliance with other medical treatment and regimen; Z79.01 Long term (current) use of anticoagulants; Z79.02 Long term (current) use of antithrombotics/antiplatelets; Z79.82 Long term (current) use of aspirin; Z89.511 Acquired absence of right leg below knee; Z95.5 Presence of coronary angioplasty implant and graft; Z83.3 Family history of diabetes mellitus; Z82.49 Family history of ischemic heart disease and other diseases of the circulatory system